=== PATIENT | female | born 1955 | race Caucasian/White ===

== ENCOUNTER 2020-05-31 08:59 | Outpatient (REF) | payer OTHER, SELFPAY ==
--- NOTE | 2020-06-01 12:37 | MHC.AU.P13 ---
Adult Audiological Evaluation Date of Visit: 05/31/20 Sliver Cutter Used: Not Applicable Reason for Appointment: Audiologic re-evaluation to determine possible change in hearing ability. History of hearing loss and difficulty understanding speech. Right hearing aid case is broken and needs to be repaired. Previous Hearing Test Results: 03/08/2019 [facility] Normal hearing at 250 and 500 Hz sloping to a moderate high frequency sensorineural hearing loss bilaterally. Medical History: Medical History: High Blood Pressure Medical History: Asthma and allergies Medication List: Claritin, Crestor, HCTZ, Omeprazole, Albuterol, Flovent Hearing Instrument History- Right Ear: Sample Grinder: InDMusic Model: [employer] V 50-M BTE Serial Number: [id number] Battery Size: 312 Repair Warranty: 01/21/2019 Loss and Damage Warranty: 01/21/2019 Dispensed By: [facility] Date of Fittin11/01/2015 Hearing Instrument History- Left Ear: Sample Grinder: [employer]ic Model: [employer] V 50-M BTE Serial Number: [id number] Battery Size: 312 Warranty: 01/31/2019 Loss and Damage Warranty: 01/31/2019 Dispensed By: [facility] Date of Fittin11/01/2015 Otoscopy: Right Ear: Unremarkable Left Ear: Unremarkable Tympanometry: Right Ear: Not performed at today's visit Left Ear: Not performed at today's visit Hearing Evaluation: Transducer(s) Used: Insert Earphones Bone Conduction Method: Conventional Audiometry Stimuli Used: Pure Tones Right Ear: Description of Hearing: Normal hearing at 250 and 500 Hz sloping to a moderate high frequency sensorineural hearing loss Left Ear: Description of Hearing: Borderline normal hearing at 250 and 500 Hz sloping to a moderate high frequency sensorineural hearing loss Speech Recognition Threshold (SRT): Method Used: Monitored Live Voice Stimuli Used: Spondee Words Right Ear: 25 dB HL Left Ear: 25 dB HL Word Discrimination: Method: Recorded Lists Word Lists Used: NU-6 Right Ear: 100% at 65 dB HL Left Ear: 100% at 65 dB HL QuickSIN: Unaided binaural Quick SIN Test: -1 dB SNR Loss This score falls within the normal range and suggests Brenda does not experience any more difficulty understanding speech with increasing levels of background noise than is expected in this control test environment. Comparison: Compared to the most recent evaluation: Hearing is stable. Recommendations: Audiological re-evaluation in one year. The right hearing aid was sent for repair. When the repair is received, will call to schedule appointment. Diagnosis: Primary Diagnosis: H90.3 Bilateral Sensorineural Hearing Loss Services Performed: Comprehensive Audiological Evaluation (CPT 13344) Signature: Provider: Isacc Flores, TERESO-A
== END 2020-05-31 09:00 | disposition home or self-care (01) ==
LOC: HO.SH 08:59
PROVIDERS: Visit Provider Internal Medicine
DX: H90.3 Sensorineural hearing loss, bilateral (principal)
CPT/HCPCS: 92557

== ENCOUNTER 2020-06-13 11:12 | Outpatient (REF) | payer SELFPAY ==
--- NOTE | 2020-06-14 16:35 | MHC.AU.P13 ---
Hearing Aid Evaluation- Binaural Date of Visit: 06/13/20 Description of Hearing: Mild sloping to moderate SNHL bilaterally Current Hearing Instrument Information: Phonak Bolero V50-M BTE (left one chewed by dog and beyond repair) Additional Information: Patient's current left hearing aid is beyond repair. She would like to purchase a new pair of hearing aids. Hearing Instrument Selection: Right Ear: Web Coordinator: Phonak Model: Properseo P50-312 Battery Size: 312 Color: Sand beige Pharmaceutical Process Engineer: Size 1 M Type of Dome: Small Closed Left Ear: Web Coordinator: Phonak Model: Audeo P50-312 Battery Size: 312 Color: Sand beige Pharmaceutical Process Engineer: Size 1 M Type of Dome: Small Closed Plan: Plan of Care for Hearing Instrument Fitting: Patient wishes to purchase hearing aids as prescribed Action Taken/Action Needed: Hearing Fitting to be scheduled when materials arrive Diagnosis Code(s): Primary Diagnosis: H90.3 Bilateral Sensorineural Hearing Loss Signature: Provider: Isacc Salinas, CCC-A
== END 2020-06-13 11:13 | disposition home or self-care (01) ==
LOC: HO.SH 11:12
PROVIDERS: Visit Provider Internal Medicine
DX: Z46.1 Encounter for fitting and adjustment of hearing aid (principal); H90.3 Sensorineural hearing loss, bilateral
CPT/HCPCS: V5014

== ENCOUNTER 2020-06-21 09:31 | Outpatient (REF) | payer SELFPAY | END 2020-06-21 09:32 | disposition home or self-care (01) | LOC: HO.HAP 09:31 | PROVIDERS: Visit Provider Internal Medicine | DX: Z46.1 Encounter for fitting and adjustment of hearing aid (principal) | CPT/HCPCS: 92591; V5261 ==

== ENCOUNTER 2020-07-12 11:24 | Outpatient (REF) | payer SELFPAY | END 2020-07-12 11:25 | disposition home or self-care (01) | LOC: HO.HAP 11:24 | PROVIDERS: Visit Provider Internal Medicine | DX: Z13.89 Encounter for screening for other disorder (principal) ==

== ENCOUNTER 2020-12-14 10:48 | Outpatient (REF) | payer SELFPAY | END 2020-12-14 10:49 | disposition home or self-care (01) | LOC: HO.HAP 10:48 | PROVIDERS: Visit Provider Internal Medicine | DX: Z13.89 Encounter for screening for other disorder (principal) ==

== ENCOUNTER 2021-04-04 14:05 | Outpatient (REF) | payer OTHER, SELFPAY ==
[2021-04-04 15:08] LABS: Influenza A PCR NEGATIVE (Negative); Influenza B PCR NEGATIVE (Negative); Resp Syncy Virus RNA Qual PCR NEGATIVE (Negative); SARS COV2 PCR INHOUSE POSITIVE (Negative)
== END 2021-04-04 14:06 | disposition home or self-care (01) ==
LOC: HO.LNP 14:05
PROVIDERS: Visit Provider Internal Medicine
DX: Z20.822 Contact with and (suspected) exposure to COVID-19 (principal)
CPT/HCPCS: 0241U

== ENCOUNTER 2021-12-05 11:09 | Outpatient (REF) | payer SELFPAY | END 2021-12-05 11:10 | disposition home or self-care (01) | LOC: HO.HAP 11:09 | PROVIDERS: Visit Provider Internal Medicine | DX: Z13.89 Encounter for screening for other disorder (principal) ==

== ENCOUNTER 2022-01-16 12:54 | Outpatient (REF) | payer MEDICARE, SELFPAY ==
[2022-01-16 13:40] LABS: MANUAL DIFF FLAG NO
[2022-01-16 13:41] LABS: Basophils Absolute Auto 0.1 X10*3/uL (0.0-0.2); Basophils Percent Auto 1.1 % (0-2); Eosinophils Absolute Auto 0.4 X10*3/uL (0.0-0.4); Eosinophils Percent Auto 8.1 % (0-4); Hematocrit 40.8 % (37.0-47.0); Hemoglobin 13.8 g/dl (12.0-16.0); Imm Gran Abs Auto 0.01 X10*3/uL (0.00-0.03); Imm Gran Pct Auto 0.2 % (0.0-0.4); Lymphocytes Absolute Auto 1.6 X10*3/uL (1.2-4.9); Lymphocytes Percent Auto 28.8 % (20-40); Mean Corpuscular HGB Conc 33.8 g/dl (31.0-35.0); Mean Corpuscular Hemoglobin 30.5 pg (27.0-33.0); Mean Corpuscular Volume 90.3 fL (80.0-98.0); Mean Platelet Volume 10.8 fL (9.4-12.3); Monocytes Absolute Auto 0.4 X10*3/uL (0.1-1.2); Monocytes Percent Auto 7.7 % (2-11); Neutrophils Percent Auto 54.1 % (45-73); Platelet Count 249 X10*3/uL (160-400); Red Blood Count 4.52 X10*6/uL (4.20-5.50); Red Cell Distribution Width 12.6 % (11.0-16.0); White Blood Count 5.5 X10*3/uL (4.8-10.8)
[2022-01-16 14:21] LABS: Alanine Aminotransferase 15 U/L (0-31); Albumin Level 4.3 g/dL (3.5-5.0); Alkaline Phosphatase 76 U/L (39-117); Anion Gap 14 (12-20); Aspartate Amino Transferase 15 U/L (5-31); Bilirubin Total 1.2 mg/dL (0.0-1.0); Blood Urea Nitrogen 7 mg/dL (9-16); Calcium 9.8 mg/dL (8.4-10.2); Carbon Dioxide 28 mmol/L (22-29); Chloride 103 mmol/L (96-108); Estimated Glomerular Filt Rate > 60; Glucose Random 104 mg/dL (60-115); Potassium 4.4 mmol/L (3.3-5.1); Sodium 141 mmol/L (135-145); Total Protein 6.9 g/dL (6.5-8.0)
[2022-01-16 14:41] LABS: Free T4 (Free Thyroxine) 0.95 ng/dL (0.71-1.85); Thyroid Stimulating Hormone 0.98 uIU/mL (0.32-4.0)
== END 2022-01-16 12:55 | disposition home or self-care (01) ==
LOC: HO.10HDL 12:54
PROVIDERS: Visit Provider Internal Medicine
DX: I10 Essential (primary) hypertension (principal); E30.9 Disorder of puberty, unspecified; J45.909 Unspecified asthma, uncomplicated; E78.00 Pure hypercholesterolemia, unspecified
CPT/HCPCS: 36415; 80053; 84439; 84443; 85025

== ENCOUNTER 2022-11-13 11:01 | Outpatient (REF) | payer SELFPAY | END 2022-11-13 11:02 | disposition home or self-care (01) | LOC: HO.HAP 11:01 | PROVIDERS: Visit Provider Internal Medicine | DX: Z13.89 Encounter for screening for other disorder (principal) ==

== ENCOUNTER 2023-01-01 11:09 | Outpatient (REF) | payer MEDICARE, SELFPAY ==
[2023-01-01 14:22] LABS: MANUAL DIFF FLAG NO
[2023-01-01 14:27] LABS: Basophils Absolute Auto 0.1 X10*3/uL (0.0-0.2); Eosinophils Absolute Auto 0.4 X10*3/uL (0.0-0.4); Eosinophils Percent Auto 6.1 % (0-4); Hematocrit 43.2 % (37.0-47.0); Hemoglobin 13.7 g/dl (12.0-16.0); Imm Gran Abs Auto 0.01 X10*3/uL (0.00-0.03); Imm Gran Pct Auto 0.2 % (0.0-0.4); Lymphocytes Percent Auto 32.7 % (20-40); Mean Corpuscular HGB Conc 31.7 g/dl (31.0-35.0); Mean Corpuscular Hemoglobin 29.3 pg (27.0-33.0); Mean Corpuscular Volume 92.3 fL (80.0-98.0); Mean Platelet Volume 11.2 fL (9.4-12.3); Monocytes Absolute Auto 0.5 X10*3/uL (0.1-1.2); Monocytes Percent Auto 8.8 % (2-11); Neutrophils Absolute Auto 3.1 x10*3/uL (2.0-8.3); Neutrophils Percent Auto 51.2 % (45-73); Platelet Count 278 X10*3/uL (160-400); Red Blood Count 4.68 X10*6/uL (4.20-5.50); Red Cell Distribution Width 12.6 % (11.0-16.0); White Blood Count 6.1 X10*3/uL (4.8-10.8)
[2023-01-01 15:02] LABS: Anion Gap 15 (12-20); Blood Urea Nitrogen 8 mg/dL (9-16); Calcium 9.7 mg/dL (8.4-10.2); Carbon Dioxide 26 mmol/L (22-29); Chloride 104 mmol/L (96-108); Cholesterol 158 mg/dL (<200); Estimated Glomerular Filt Rate > 60; Glucose Random 110 mg/dL (60-115); HDL Cholesterol 48 mg/dL (>40); LDL Cholesterol Calculated 83 mg/dL (<100); Potassium 4.4 mmol/L (3.3-5.1); Sodium 141 mmol/L (135-145); Triglycerides 135 mg/dL (<150)
[2023-01-01 15:18] LABS: Free T4 (Free Thyroxine) 0.86 ng/dL (0.71-1.85); Thyroid Stimulating Hormone 0.96 uIU/mL (0.32-4.0)
== END 2023-01-01 11:10 | disposition home or self-care (01) ==
LOC: HO.WFDLDS 11:09
PROVIDERS: Visit Provider Internal Medicine
DX: E78.00 Pure hypercholesterolemia, unspecified (principal); I10 Essential (primary) hypertension; E03.9 Hypothyroidism, unspecified
CPT/HCPCS: 36415; 80048; 80061; 84439; 84443; 85025

== ENCOUNTER 2023-08-13 12:38 | Outpatient (REF) | payer MEDICARE, SELFPAY ==
--- NOTE | 2023-08-13 13:34 | MHC.AU.HA3 ---
Hearing Instrument Follow-Up- Binaural Date of Visit: 08/13/23 Right Ear: Justino, Model, Color, Serial Number: Buck Hairston P50-312 SN [id number] Basket Grader Repair Warranty: 09/12/2023 Basket Grader Loss and Damage Warranty: 09/12/2023 [facility] Service Plan: 09/12/2023 Battery Size: 312 Wrap Knitting Machine Operator/Slim Tube: Size 1 M Earmold/Dome/CShell/SlimTip: Type of Wax Guard: Cerushield Dispensed By: [facility] Date of Fittin07/22/2020 Left Ear: Justino, Model, Color, Serial Number: Buck Hairston P50-312 SN [id number] Basket Grader Repair Warranty: 09/12/2023 Basket Grader Loss and Damage Warranty: 09/12/2023 [facility] Service Plan: 09/12/2023 Battery Size: 312 Wrap Knitting Machine Operator/Slim Tube: Size 1 M Earmold/Dome/CShell/SlimTip: Type of Wax Guard: Cerushield Dispensed By: [facility] Date of Fittin07/22/2020 Follow-Up Summary: Seen for evaluation. Cleaned and checked aids. Replaced tails, wax guards, domes. Listening check positive. Firmware updated. Recommendations: Recommendations: Hearing instrument follow-up or maintenance as needed. Diagnosis Code(s): Primary Diagnosis: H90.3 Bilateral Sensorineural Hearing Loss Signature: Provider: Jacques Baer, CCC-A
== END 2023-08-13 12:39 | disposition home or self-care (01) ==
LOC: HO.SH 12:38
PROVIDERS: Visit Provider Internal Medicine
DX: Z01.118 Encounter for examination of ears and hearing with other abnormal findings (principal); H90.3 Sensorineural hearing loss, bilateral
CPT/HCPCS: 92552; 92556

== ENCOUNTER 2024-06-15 15:38 | Outpatient (REF) | payer SELFPAY ==
--- NOTE | 2024-06-15 16:14 | MHC.AU.HA3 ---
Hearing Instrument Follow-Up- Binaural Date of Visit: 06/15/24 Right Ear: Justino, Model, Color, Serial Number: Buck Hairston P50-312 SN [id number] Performance Makeup Artist Repair Warranty: 09/12/2023 Performance Makeup Artist Loss and Damage Warranty: 09/12/2023 [facility] Service Plan: 09/12/2023 Battery Size: 312 Cotton Program Technician/Slim Tube: Size 1 M Earmold/Dome/CShell/SlimTip:sm open Type of Wax Guard: Cerushield Dispensed By: [facility] Date of Fittin07/22/2020 Left Ear: Justino, Model, Color, Serial Number: Buck Almanzaro P50-312 SN [id number] Performance Makeup Artist Repair Warranty: 09/12/2023 Performance Makeup Artist Loss and Damage Warranty: 09/12/2023 [facility] Service Plan: 09/12/2023 Battery Size: 312 Cotton Program Technician/Slim Tube: Size 1 M Earmold/Dome/CShell/SlimTip: sm open Type of Wax Guard: Cerushield Dispensed By: [facility] Date of Fittin07/22/2020 Follow-Up Summary: Seen for maintenance. Reports no concerns about hearing aids at this time. Cleaned aids, brushed debris from alex ports, replaced domes wax guards and tails. Listening check positive. Recommendations: Recommendations: Hearing instrument follow-up or maintenance as needed. Diagnosis Code(s): Primary Diagnosis: H90.3 Bilateral Sensorineural Hearing Loss Signature: Provider: Jacques Baer, CCC-A
--- OUTSIDE RECORDS SUMMARY | 2024-06-15 18:19 | XMS_ITS | Patient Health Record ---
Author Organization [facility] Address [address] [place] [address] Care Team Providers Care Paper Bag Inspector Name Role Phone Meliton Kline MD Primary Care Provider Unavaila ble Black, Rox Unavailable [phone] Allergies No Known Allergies Results Component Value Reference Range Notes X ray : Foot, left 3V Reviewed date:07/13/2023 02:25:37 PM Interpretation:See Examination above Performing Lab: Notes/Report: See Examination above Reason For Referral No Information Medications Medication SIG (Take, Route, Frequency, Duration) Notes Start Date End Date Status Ciclopirox Olamine 0.77 % 1 application Externally Once a day 05/29/2022 Not-Taking Flovent HFA 110 MCG/ACT INHALE 1 PUFF BY MOUTH TWICE A DAY (RINSE MOUTH AFTER USING) Inhalation for 90 Not-Taking hydroCHLOROthiazide 12.5 MG 1 capsule in the morning Orally Once a day for 30 day(s) Active Omeprazole 40 MG TAKE ONE CAPSULE BY MOUTH EVERY DAY Oral for 90 Active Ciclopirox 0.77 % APPLY 1 APPLICATION TWICE A DAY EXTERNALLY FOR 30 for 30 Not-Taking Wixela Inhub 100-50 MCG/ACT 1 puff Inhalation Twice a day Active Formula 7 The Solution Active Formula 7 The Solution 1 % 1 application Externally Once a day Active Ammonium Lactate 12 % 1 application Externally to affected areas of dry skin to feet except for between the toes Twice a day for 30 days Active Albuterol Sulfate HFA 108 (90 Base) MCG/ACT INHALE 2 PUFFS EVERY 4 HOURS DIRECTED Inhalation for 16 Active Claritin 10 MG 1 tablet Orally Once a day for 30 day(s) Active Vitamin D 3 times a week Active Crestor 5 MG 1 tablet Orally Once a day for 30 day(s) Active Immunizations Vaccine Route Administration Date Status Comme nts COVID-19 Moderna Vaccine Unknown 02/18/2021 Administered 1 dose 04/07/2020 2nd 05/05/20 Social History Tobacco Use: Social History Observation Description Date Details (start date - stop date) Never Smoker NA - NA Tobacco Use/Smoking Question Answer Notes Are you a: nonsmoker Additional Findings: Tobacco Non-User Current no n-smoker Alcohol Screen Question Answer Notes Did you have a drink containing alcohol in the p ast year? No Points 0 Interpretation Negative Tobacco use other than smoking: Question Answer Notes Are you an other tobacco user? No Problems Problem Type SNOMED Code ICD Code Onset Dates Problem Status W/U Status Risk Notes Problem Acquired hammer toe of right foot (283983310634030 5) Other hammer toe(s) (acquired), right foot (M20.41) Active confirmed Problem Acquired hammer toe of left foot (913038230584898 3) Other hammer toe(s) (acquired), left foot (M20.42) Active confirmed Problem Acquired hallux valgus (78876976) Hallux valgus (acquired), right foot (M20.11) Active confirmed Problem Contracture of joint (5752331) Flexion contracture (M24.50) Active confirmed Problem Acquired hallux valgus (65108522) Hallux valgus, left (M20.12) Active confirmed Vital Signs Blood pressure diastolic 80 mm Hg 05/16/2024 Height 9hn82dn in 05/16/2024 Blood pressure systolic 138 mm Hg 05/16/2024 Weight 234 lbs 05/16/2024 BMI 32.63 kg/m2 05/16/2024 Procedures Procedure Date Ordered Date Performed Result Body Sit e 80240-FAJUJER NAIL, 6 OR MORE 07/13/2023 N/A 07027-OMNIALZ NAIL, 6 OR MORE 10/29/2023 N/A 16755-[id number] NAIL, 6 OR MORE 02/08/2024 N/A 33436-VZRSHRW NAIL, 6 OR MORE 05/16/2024 N/A Encounters Encounter Location Date Provider Diagnosis [facility] [place] [address] [place] [address] 07/13/2023 Rox Black Tinea unguium B35.1 ; Pain in right toe(s) M79.674 ; Pain in left toe(s) M79.675 ; Pain in right foot M79.671 ; Metatarsalgia of left foot M77.42 ; Flexion contracture M24.50 ; Hallux valgus, left M20.12 and Pain in left foot M79.[address] [address] 10/29/2023 Rox Black Tinea unguium B35.1 ; Metatarsalgia of left foot M77.42 ; Pain in right toe(s) M79.674 ; Pain in left toe(s) M79.675 ; Pain in right foot M79.671 ; Flexion contracture M24.50 ; Hallux valgus, left M20.12 and Pain in left foot M79.[address] [address] 02/08/2024 Rox Black Tinea unguium B35.1 ; Metatarsalgia of left foot M77.42 ; Pain in right toe(s) M79.674 ; Pain in left toe(s) M79.675 ; Pain in right foot M79.671 ; Flexion contracture M24.50 ; Hallux valgus, left M20.12 and Pain in left foot M79.[address] [address] 05/16/2024 Rox Black Tinea unguium B35.1 ; Xerosis of skin L85.3 ; Pain in right toe(s) M79.674 and Pain in left toe(s) M79.[address] [address] 07/13/2023 Rox Black [address] [address] 10/29/2023 Rox Black [address] [address] 02/08/2024 Rox Black [facility] [address] [place] [address] 04/18/2024 Rox Shaji [facility] [address] [address] 05/16/2024 Rox Girard [facility] Encounter Date Diagnosis (ICD Code) Assessment Notes Treatment Notes Treatment Clinical Notes Section Notes 07/13/2023 Tinea unguium (ICD-10 - B35.1) 07/13/2023 Pain in right toe(s) (ICD-10 - M79.674) 10/29/2023 Tinea unguium (ICD-10 - B35.1) 02/08/2024 Tinea unguium (ICD-10 - B35.1) 10/29/2023 Metatarsalgia of left foot (ICD-10 - M77.42) Response to treatment - Unchanged 02/08/2024 Metatarsalgia of left foot (ICD-10 - M77.42) Response to treatment - Improvement 05/16/2024 Tinea unguium (ICD-10 - B35.1) 05/16/2024 Xerosis of skin (ICD-10 - L85.3) 05/16/2024 Pain in right toe(s) (ICD-10 - M79.674) 02/08/2024 Pain in right toe(s) (ICD-10 - M79.674) 10/29/2023 Pain in right toe(s) (ICD-10 - M79.674) 07/13/2023 Pain in left toe(s) (ICD-10 - M79.675) 07/13/2023 Pain in right foot (ICD-10 - M79.671) 10/29/2023 Pain in left toe(s) (ICD-10 - M79.675) 02/08/2024 Pain in left toe(s) (ICD-10 - M79.675) 05/16/2024 Pain in left toe(s) (ICD-10 - M79.675) 02/08/2024 Pain in right foot (ICD-10 - M79.671) 10/29/2023 Pain in right foot (ICD-10 - M79.671) 07/13/2023 Metatarsalgia of left foot (ICD-10 - M77.42) 07/13/2023 Flexion contracture (ICD-10 - M24.50) 02/08/2024 Flexion contracture (ICD-10 - M24.50) 10/29/2023 Flexion contracture (ICD-10 - M24.50) 10/29/2023 Hallux valgus, left (ICD-10 - M20.12) 02/08/2024 Hallux valgus, left (ICD-10 - M20.12) 07/13/2023 Hallux valgus, left (ICD-10 - M20.12) 10/29/2023 Pain in left foot (ICD-10 - M79.672) 02/08/2024 Pain in left foot (ICD-10 - M79.672) 07/13/2023 Pain in left foot (ICD-10 - M79.672) Plan Of Treatment Pending Test Test Name Order Date 04583-GZIOSPO NAIL, 6 OR MORE 03/05/2020 18779-LRIXQKK NAIL, 6 OR MORE 09/06/2020 17795-EWXINOZ NAIL, 6 OR MORE 12/06/2020 08521-WJHPPXZ NAIL, 6 OR MORE 03/25/2021 48739-RMFSZJD NAIL, 6 OR MORE 07/08/2021 88787-QVIGMZM NAIL, 6 OR MORE 11/21/2021 40668-GYLEZLW NAIL, 6 OR MORE 02/24/2022 19088-BKWUVEL NAIL, 6 OR MORE 09/04/2022 15948-NJIWYPF NAIL, 6 OR MORE 02/19/2023 03923-HVIVUWF NAIL, 6 OR MORE 07/13/2023 13333-RSBCNNQ NAIL, 6 OR MORE 10/29/2023 32063-PFPDOVV NAIL, 6 OR MORE 02/08/2024 56835-QDTXMVJ NAIL, 6 OR MORE 05/16/2024 Next Appt Details Provider Name:Rox A Shaji , 08/25/2024 01:30:00 PM, [address] [facility], [place], [address], Insurance Providers Payer Name Payer Address Payer Phone Subscriber Number Group Number Insured Name Patient Relationship to Insured Coverage Start Date Coverage End Date [employer] 65 Medicare Preferred [address] [place] [address] [id number] Brenda Munguia Self - patient is the insured Medical (General) History Medical History History ICD Code asthma High blood pressure Measles Chicken pox toenail fungus Surgical History Surgery Date(Month/Year) section 09/1985 section 08/1988 hysterectomy 05/1992
--- OUTSIDE RECORDS SUMMARY | 2024-06-15 18:19 | XMS_ITS ---
Author Organization [facility] Address [address] [place] [address] Care Team Providers Care Menhaden Fishing Crew Member Name Role Phone Meliton Kline MD Primary Care Provider UnavailRox Swift Unavailable [phone] REASON FOR VISIT BUY Formula 7 Encounters Encounter Location Date Provider Diagnosis [facility] [address] [place] [address] 04/18/2024 Rox Girard Plan Of Treatment Next Appt Details Provider Name:Rox A Shaji , 08/25/2024 01:30:00 PM, [address] [place], [address], Progress Notes * ANNABrenda PORTERDOB: [birth year] (68 yo F)Acc No.[id number]:04/18/2024 Patient:?LAINECOTYBrenda :1955???Age:68 Y???Sex:Female Address:[place] [address] * true * Date:? Generated for Iftikhari vance/Ashvin/eTransmitting on:?06/15/2024 06:19 PM EDT
--- OUTSIDE RECORDS SUMMARY | 2024-06-15 18:19 | XMS_ITS ---
Author Organization [facility] Address [address] [place] [address] Care Team Providers Care Engineering Faculty Member Name Role Phone Meliton Kline MD Primary Care Provider Rox Sargent [phone] REASON FOR VISIT BUY Dancers Pads Encounters Encounter Location Date Provider Diagnosis [address] [address] 05/16/2024 Rox Girard Plan Of Treatment Next Appt Details Provider Name:Rox Girard , 08/25/2024 01:30:00 PM, [address] [place], [address], Progress Notes * Brenda WILLISDOB: [birth year] (68 yo F)Acc No.[id number]:05/16/2024 Patient:?ANNAGERMAN Brenda :1955???Age:68 Y???Sex:Female Address:[place] [address] * true * Date:? Generated for Iftikhari vance/Ashvin/eTransmitting on:?06/15/2024 06:19 PM EDT
--- OUTSIDE RECORDS SUMMARY | 2024-06-15 18:20 | XMS_ITS ---
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 Name Role Phone Meliton Kline MD Primary Care Provider Unavaila ble Black, Rox Unavailable [phone] Allergies No Known Allergies REASON FOR VISIT Painful nail(s) aggrevated by shoes causing difficulty standing/walking, Skin problem(s) Medications Medication SIG (Take, Route, Frequency, Duration) Notes Start Date End Date Status Ciclopirox Olamine 0.77 % 1 application Externally Once a day 05/29/2022 Not-Taking Flovent HFA 110 MCG/ACT INHALE 1 PUFF BY MOUTH TWICE A DAY (RINSE MOUTH AFTER USING) Inhalation for 90 Not-Taking Omeprazole 40 MG TAKE ONE CAPSULE BY MOUTH EVERY DAY Oral for 90 Active Ciclopirox 0.77 % APPLY 1 APPLICATION TWICE A DAY EXTERNALLY FOR 30 for 30 Not-Taking Ammonium Lactate 12 % 1 application Externally to affected areas of dry skin to feet except for between the toes Twice a day for 30 days Active hydroCHLOROthiazide 12.5 MG 1 capsule in the morning Orally Once a day for 30 day(s) Active Albuterol Sulfate HFA 108 (90 Base) MCG/ACT INHALE 2 PUFFS EVERY 4 HOURS DIRECTED Inhalation for 16 Active Claritin 10 MG 1 tablet Orally Once a day for 30 day(s) Active Vitamin D 3 times a week Active Crestor 5 MG 1 tablet Orally Once a day for 30 day(s) Active Wixela Inhub 100-50 MCG/ACT 1 puff Inhalation Twice a day Active Formula 7 The Solution Active Formula 7 The Solution 1 % 1 application Externally Once a day Active Social History Tobacco Use: Social History Observation Description Date Details (start date - stop date) Never Smoker NA - NA Tobacco Use/Smoking Question Answer Notes Are you a: nonsmoker Additional Findings: Tobacco Non-User Current no n-smoker Tobacco use other than smoking: Question Answer Notes Are you an other tobacco user? No Vital Signs Height [id number] in 05/16/2024 Weight 234 lbs 05/16/2024 BMI 32.63 kg/m2 05/16/2024 Blood pressure systolic 138 mm Hg 05/16/19 25 Blood pressure diastolic 80 mm Hg 025 Procedures Procedure Date Ordered Date Performed Result Body Sit e 48738-YWMBIOH NAIL, 6 OR MORE 05/16/2024 N/A Encounters Encounter Location Date Provider Diagnosis [facility] [address] [address] 05/16/2024 Rox Girard Tinea unguium B35.1 ; Xerosis of skin L85.3 ; Pain in right toe(s) M79.674 and Pain in left toe(s) M79.675 Assessments Encounter Date Diagnosis (ICD Code) Assessment Notes Treatment Notes Treatment Clinical Notes Section Notes 05/16/2024 Tinea unguium (ICD-10 - B35.1) 05/16/2024 Xerosis of skin (ICD-10 - L85.3) 05/16/2024 Pain in right toe(s) (ICD-10 - M79.674) 05/16/2024 Pain in left toe(s) (ICD-10 - M79.675) Plan Of Treatment Medication Medication Name Sig Start Date Stop Date Notes Ammonium Lactate 12 % 1 application Exte rnally to affected areas of dry skin to feet except for between the toes Twice a day for 30 days Pending Test Test Name Order Date [id number] NAIL, 6 OR MORE 05/16/2024 Next Appt Details Follow Up: prn, Reason: Provider Name:Rox Girard , 08/25/2024 01:30:00 PM, [address] [place] [address], [id number], Procedure Notes * Category Sub-Category Detail Notes Debride Nail 6-10 Nail debridement Due to the cl inical pathology outlined in the exam findings, performance of this nail treatment is medically necessary as its management by an unskilled/untrained nonprofessional would put this patients foot and overall health at risk. Therefore, debridement to affected nail(s), as described in exam ( TA, T1, T4, T5, T6, T9, ), was performed exclusively by the physician of record to reduce/remove overall nail length, girth, thickness, subungual debris, and necrotic tissue, by manual and/or electrical means through the use of a nail nipper and/or dremel-type sugar grinder, to a more viable healthy nail plate or bed tissue 6-10 nails in total. Silver nitrate was used for any petechial bleeding as necessary. Definitive antifungal treatment options, both pharmaceutical and surgical, have been reviewed and discussed with the patient. The patient solely prefers the use of intermittent/as needed professional debridement services for their nail condition and understands the need for additional periodic treatments to maintain effectiveness in symptomatic relief - 57410 Patient chooses to cont, topical AF treatment Progress Notes * Brenda WILLISDOB: [birth year] (68 yo F)Acc No.[id number]:05/16/2024 Progress Note Patient:?Brenda WILLIS Provider:?Rox Girard DPM :1955???Age:68 Y???Sex:Female D ate:05/16/2024 Address:[address] [place], [place] [id number] Pcp:Meliton Kline MD Subjective: * Chief Complaints: * ???Painful nail(s) aggrevate d by shoes causing difficulty standing/walkingSkin problem(s) * HPI: ???Painful Nails:?Pt States Last PCP Visit:?Date:?01/14/2024 ?Treatments:?Coclopirox topical gel and , Formula 7 , relates incomplete sporatic adherence to recom tx.?Skin problems:?Nature:?dryness , scaling.?Location:?B/L .?Duration:?several days.?Course:?worse.? * ROS:?General/Constitutional:?Nausea?denies.?Vomiting?denies.?Hunger Thirst?denies.?Loss appetite?denies.?Chills?denies.?Fatigue?denies.?Fever?denies.?Night Sweats?denies.?Unexplained weight loss?denies.?Unexplained weight gain?denies.?HEENTM:?Dentures?denies.?Dizziness?denies.?Glasses/contacts?admits.?Retinopathy?de nies.?Blurred/double vision?denies.?TMJ?denies.?Discharge/drainage?denies.?Implants?denies.?Sore throat?denies.?Dental implants?denies.?Hard of hearing ?denies.?Difficulty chewing/swallowing/speaking?denies.?Nose bleeds?denies.?Sore mouth?denies.?Respiratory:?On Oxygen?denies.?Pneumonia/pleurisy?denies.?Bronchitis?denies.?Emphysema?denies.?C oughing?denies.?Cough blood?denies.?Shortness of breath?denies.?Wheezing?denies.?Cardiovascular:?Pacemaker?denies.?MVP?denies.?WPW?denies.?CHF?denies.?Heart attack?denies.?Septal defect?denies.?Rapid beat?denies.?Chest pain ?denies.?Atrial Fib.?denies.?Murmur/Palpitations?denies.?Gastrointestinal:?Hemorrhoids?denies.?Stomach/Abdominal pain?denies.?Dark blood stool?denies.?Irritable bowel ?denies.?Constipation?denies.?Diarrhea?denies.?Hematology:?Swelling?denies.?Clots?denies.?Varicose Veins?denies.?Bruising?denies.?Bleeding problem?denies.?Genitourinary:?Blood urine?denies.?Frequent/Painfu/urination/bladder control?denies.?Kidney stones?denies.?Infection (UTI)?denies.?Nephropathy?denies.?sex trans dis (STD)?denies.?Prostate?denies.?Musculoskeletal:?Hammertoes?denies.?Bunions?denies.?Back Pain?denies.?Muscle Cramps/ Resting?denies.?Muscle cramps / walking?denies.?Generalized aches and pains?admits.?Weakness?denies.?Integ.:?Perez?denies.?Scars?denies.?Corns/calluses?admits.?Ingrown nails?denies.?Painful nails?,admits.?Open Sores?denies.?Rashes?denies.?Neurologic:?Difficulty sleeping?denies.?Brain disorder?denies.?Numbness?denies.?Balance trouble?denies.?Confusion?denies.?Fainting/blackouts?denies.?Tingling?denies.?Tr emors?denies.? * Medical History:? * Surgical History:? s ection 09/1985cesarean section 08/1988hysterectomy 05/1992 * Hospitalization/Major Diagno stic Procedure:?Denies Past Hospitalization * Family History:?Mother: dece ased, diagnosed with Unspecified cerebral artery occlusion with cerebral infarction.?Father: , kidney/liver disease,.?Siblings: , Brother- Lung Cancer, diagnosed with Other malignant neoplasm of unspecified site, Diabetic - NIDDM, Unspecified essential hypertension.?Spouse: esophageal cancer , diagnosed with Other specified conditions influencing health status.? * Social History:?Tobacco Use:?Tobacco Use/Smoking?Are you a:?nonsmoker ?Additional Findings: Tobacco Non-User?Current non-smoker ?Tobacco use other than smoking?Are you an other tobacco user??No ???Miscellaneous:?Caffeine: yes, frequency:, 1-2 cups per day. ?Children: yes. ?Exercise: yes, walking. ?Marital status: . ?Occupation: [employer] * Medications:?TakingFormula 7 The Solution 1 % Solution 1 application Externally Once a day Wixela Inhub 100-50 MCG/ACT Aerosol Powder Breath Activated 1 puff Inhalation Twice a day Formula 7 The Solution Vitamin D , Notes to Pharmacist: 3 times a weekCrestor 5 MG Tablet 1 tablet Orally Once a day Albuterol Sulfate HFA 108 (90 Base) MCG/ACT Aerosol Solution INHALE 2 PUFFS EVERY 4 HOURS DIRECTED Inhalation Claritin 10 MG Tablet 1 tablet Orally Once a day hydroCHLOROthiazide 12.5 MG Capsule 1 capsule in the morning Orally Once a day Omeprazole 40 MG Capsule Delayed Release TAKE ONE CAPSULE BY MOUTH EVERY DAY Oral Taking Formula 7 The Solution 1 % Solution 1 application Externally Once a day Taking Wixela Inhub 100-50 MCG/ACT Aerosol Powder Breath Activated 1 puff Inhalation Twice a day Taking Formula 7 The Solution Taking Vitamin D , Notes to Pharmacist: 3 times a weekTaking Crestor 5 MG Tablet 1 tablet Orally Once a day Taking Albuterol Sulfate HFA 108 (90 Base) MCG/ACT Aerosol Solution INHALE 2 PUFFS EVERY 4 HOURS DIRECTED Inhalation Taking Claritin 10 MG Tablet 1 tablet Orally Once a day Taking hydroCHLOROthiazide 12.5 MG Capsule 1 capsule in the morning Orally Once a day Taking Omeprazole 40 MG Capsule Delayed Release TAKE ONE CAPSULE BY MOUTH EVERY DAY Oral Not-Taking/PRNCiclopirox Olamine 0.77 % Cream 1 application Externally Once a day Flovent HFA 110 MCG/ACT Aerosol INHALE 1 PUFF BY MOUTH TWICE A DAY (RINSE MOUTH AFTER USING) Inhalation Ciclopirox 0.77 % Gel APPLY 1 APPLICATION TWICE A DAY EXTERNALLY FOR 30 Medication List reviewed and reconciled with the patientNot-Taking/PRN Ciclopirox Olamine 0.77 % Cream 1 application Externally Once a day Not-Taking/PRN Flovent HFA 110 MCG/ACT Aerosol INHALE 1 PUFF BY MOUTH TWICE A DAY (RINSE MOUTH AFTER USING) Inhalation Not-Taking/PRN Ciclopirox 0.77 % Gel APPLY 1 APPLICATION TWICE A DAY EXTERNALLY FOR 30 Medication List reviewed and reconciled with the patient * Allergies:?N.K.D.A.yes[Ravin duncan Verified] Objective: * Vitals:?Ht: [id number], Wt:234, BMI:32.63, Shoe size: 10, BP:138/80mm Hg, Ht-cm: 180.34 cm, Wt-k.14 kg. * Examination: ???General Examination: ?GENERAL APPEARANCE:?Reveals a pleasant, alert, well nourished, well- developed, well hydrated individual, who demonstrates proper attention to hygiene/body habitus, and is in no acute distress, Pt serves as own historian for office visit today.?ORIENTED:?person, place, and time.?Nails: ?NAILS are:?elongated,overgrown,dystrophic,greater than 3mm thick,discolored and friable with crumbly malodorous subungual debris, with pain on palpation, TA, T1, T4, T5, T6, T9,.?Orthopedic: ?BUNION:? Medially prominent 1st MPJ,LEFT.?DIGITAL DEFORMITIES:?Digital contracture, PIPJ, 2-5 B/L, incompl-reducible with WB, or to push-up test, no over, nor underlapping.?MPJ PATHOLOGY:?Atrophied anterior fat pad , Plantarflexed MT/MPJ , Pain, swelling, and inflammation to plantar MPJ(s) , 1st , LEFT, No MPJ pain with ROM , Approximately 70 percent LESS.?Vascular: ?DP PULSES (B):?2/4, B/L.?PT PULSES (B):?2/4, B/L.?Dermatologic: ?SKIN FINDINGS:?Skin shows sign(s) of, dryness, scaling, in a stocking fashion, no fissure(s) present, B/L.? Assessment: * Assessment: 1.?Tinea unguium - B35.1???2 .?Xerosis of skin - L85.3 (Primary)???Specify :Acute problem, Uncomplicated (3),Rx Management (4)???3.?Pain in right toe(s) - M79.674???4.?Pain in left toe(s) - M79.675??? Plan: * Treatment: 2.?Tinea unguium?Procedure: [id number] NAIL, 6 OR MORE * Procedures:?Debride Nail 6-10:?Nail debridement?Due to the clinical pathology outlined in the exam findings, performance of this nail treatment is medically necessary as its management by an unskilled/untrained nonprofessional would put this patients foot and overall health at risk. Therefore, debridement to affected nail(s), as described in exam ( TA, T1, T4, T5, T6, T9, ), was performed exclusively by the physician of record to reduce/remove overall nail length, girth, thickness, subungual debris, and necrotic tissue, by manual and/or electrical means through the use of a nail nipper and/or dremel-type sugar grinder, to a more viable healthy nail plate or bed tissue 6-10 nails in total. Silver nitrate was used for any petechial bleeding as necessary. Definitive antifungal treatment options, both pharmaceutical and surgical, have been reviewed and discussed with the patient. The patient solely prefers the use of intermittent/as needed professional debridement services for their nail condition and understands the need for additional periodic treatments to maintain effectiveness in symptomatic relief - 23111.?Patient chooses ?to cont, topical AF treatment.? * Procedure Codes:?85750 DEBRI DE NAIL, 6 OR MORE * Preventive Medicine:? ??Counseling:?Discussion:?-13: Office or other outpatient visit for the evaluation and management of an established patient, which required a medically appropriate history and/or examination and LOW level of DECISION MAKING for: 1 STABLE ACUTE UNCOMPLICATED PROBLEM, 2 OR MORE MINOR PROBLEMS, OR 1 STABLE CHRONIC PROBLEM, THAT POSE(S) A LOW RISK FOR MORBIDITY/MORTALITY. The visit on the day of the encounter encompassed interpreting the data and educating the patient as to the nature of their condition, treatment options available according to their individual PMH, meds, allergies, and overall health/living conditions, as well as any potential risks or complications that may occur from a failure to adhere to, and participate in, the recommended course of therapy. The discussion included a complete verbal, and/or written explanation of the examination results, any x-rays taken, the proposed diagnosis, and outline of the treatment plan. A schedule for future care needs was also explained. The patient verbalized an understanding of the instructions at this time and agreed to be an active participant in their treatment. If the patient should think of any questions or concerns after the visit, I have encouraged the patient to call the office.?Xerosis:?The patient was counseled on the diagnosis, potential etiologies, and treatment options for their skin condition. We discussed the risks and benefits of each option from performing no treatment, to utilizing OTC topical skin creams/ointments, to utilizing prescription topical creams/ointments, to utilizing customized compounded topical medications and use of nocturnal occlusion with any/all previously detailed therapies. We discussed the advantages and disadvantages of each possible treatment and importance for adherence to all the recommended therapies for optimum success and avoid potential complications such as open sore/infection/possible hospitalization. We discussed the potential effectiveness of each topical preparation as well as each ones possible side effects and/or patient medication interactions. Patient questions re: use, dosage, successful outcomes, and application consistency were reviewed and the patient verbalized that all answers were clearly understood. The patient has decided to apply Rx skin creams to their feet save the interspaces while paying special attention to the heels. Such was sent to their pharmacy at the time of visit.? ??Screening/Special Tests:?Fall Risk?Screening:?No falls in the past year ?FALLS: Screening for Future Fall Risk?Have you had any falls with injury in the past year??No * Follow Up:?prn * Images: * Sign off status: Completed true * Provider:?JEANINE StoddardM Date:?2024 Generated for Charles woodard/Ashvin/Luther on:?06/15/2024 06:19 PM EDT History and Physical Notes * HPI (History of Present Illness) Category Sub-Category Detail Notes Category Not es Painful Nails Treatments: Coclopirox topic al gel and , Formula 7 , relates incomplete sporatic adherence to recom tx Pt States Last PCP Visit: Date:: 01/14/2024 Skin problems Nature: dryness , scaling Location: B/L Duration: several days Course: worse Examination Category Sub-Category Detail Notes Category Not es Dermatologic SKIN FINDINGS: Skin shows sign( s) of, dryness, scaling, in a stocking fashion, no fissure(s) present, B/L Orthopedic BUNION: Medially prominent 1st MPJ, LEFT DIGITAL DEFORMITIES: Digital contracture , PIPJ, 2-5 B/L, incompl-reducible with WB, or to push-up test, no over, nor underlapping MPJ PATHOLOGY: Atrophied anterior f at pad , Plantarflexed MT/MPJ , Pain, swelling, and inflammation to plantar MPJ(s) , 1st , LEFT, No MPJ pain with ROM , Approximately 70 percent LESS General Examination GENERAL APPEARANCE: Reveals a pleasant, alert, well nourished, well-developed, well hydrated individual, who demonstrates proper attention to hygiene/body habitus, and is in no acute distress, Pt serves as own historian for office visit today ORIENTED: person, place, and t william Vascular DP PULSES (B): 2/4, B/L PT PULSES (B): 2/4, B/L Nails NAILS are: elongated,overgr own,dystrophic,greater than 3mm thick,discolored and friable with crumbly malodorous subungual debris, with pain on palpation, TA, T1, T4, T5, T6, T9,
== END 2024-06-15 15:39 | disposition home or self-care (01) ==
LOC: HO.HAP 15:38
PROVIDERS: Visit Provider Internal Medicine
DX: Z46.1 Encounter for fitting and adjustment of hearing aid (principal); H90.3 Sensorineural hearing loss, bilateral
CPT/HCPCS: 92593

== ENCOUNTER 2024-06-24 10:26 | Outpatient (AMB) | payer MEDICARE, SELFPAY ==
--- NOTE | 2024-06-24 10:32 | MHC.PC.OV ---
Vital Signs 06/24/24 10:50 Height 5 ft 11 in Weight 233 lb BMI 32.5 BP 124/72 Respiration 16 Pulse 80 Pulse Source Pulse Oximeter Temp 97.8 F Temp Source Temporal Artery Scan Pulse Oximetry (%) 97 Oxygen Delivery Method Room Air Intake Visit Reasons: Routine Manager Event Required: No Accompanied by: Self / Same As Patient Allergies No Known Allergies Allergy (Verified 06/24/24 10:53) Tobacco use date assessed: 06/24/24 Fall risk assessment: No Falls in past year Last assessed Fall Risk: 06/24/24 Dental Screening Dental Screen Date: 06/24/24 Did you have a dental visit in the last 12 months?: No Did you have a dental problem in the last 6 months where you did not have access to dental care?: No HPI HPI Comments History of Present Illness Details The patient is a 68 year old female with a past medical hsitory of htn, hld, asthma, GERD, frequent UTI presenting for follow up Last seen Jan 2024 for annual CV: on hctz mwv. BP 124/72. Denies chest pain, shortness of breath GERD: Stable on PPI Frequent UTI. Has abx at home Cologuard 06/18/2022 Mammo says UTD ROS CONSTITUTIONAL: Denies weight loss, fever and chills. HEENT: Denies changes in vision and hearing. RESPIRATORY: Denies SOB and cough. CV: Denies palpitations and CP GI: Denies abdominal pain, nausea, vomiting and diarrhea. : Denies dysuria and urinary frequency. MSK: Denies new myalgia and joint pain. SKIN: Denies rash and pruritus. NEUROLOGICAL: Denies headache PSYCHIATRIC: Denies recent changes in mood. PHYSICAL EXAM: GENERAL: Alert and oriented x 3. NAD EYES: EOMI. Anicteric. HENT: Moist mucous membranes. No scleral icterus. No cervical lymphadenopathy. LUNGS: Clear to auscultation bilaterally. CARDIOVASCULAR: Regular rate and rhythm. No murmur. No JVD. ABDOMEN: Soft, non-tender +bs EXTREMITIES: No edema. Non-tender. SKIN: No rashes or lesions. Warm. NEUROLOGIC: No focal neurological deficits. CN II-XII grossly intact PSYCHIATRIC: Cooperative. Appropriate mood and affect [facility] Family History Mother Ovarian cancer Father Liver failure AA (alcohol abuse) Social History Housing: House Alcohol intake: current Alcohol intake frequency: holidays/special occasions only Patient Tobacco Use Status: Never used Tobacco service: No Current occupational status: retired Cognitive needs: No Hearing needs: Yes (b/l hearing aids) Vision needs: Yes (rx glasses) Questionnaire PHQ-9 Over the last 2 weeks, how often have you been bothered by any of the following problems? 1. Little interest or pleasure in doing things: not at all 2. Feeling down, depressed, or hopeless: not at all 3. Trouble falling or staying asleep, or sleeping too much: not at all 4. Feeling tired or having little energy: not at all 5. Poor appetite or overeating: not at all 6. Feeling bad about yourself - or that you are a failure or have let yourself or your family down: not at all 7. Trouble concentrating on things, such as reading the newspaper or watching television: not at all 8. Moving or speaking so slowly that other people could have noticed. Or the opposite - being so fidgety or restless that you have been moving around a lot more than usual: not at all 9. Thoughts that you would be better off or of hurting yourself in some way: not at all Total score: 0 Depression Screening Interpretation: Negative Depression Screening Done: Yes 42655 - PHQ-9 Billing: Yes Source: Developed by Drs. Ishmael Fernández, Sofia Le, Vin Howard and colleagues, with an educational jessika from [employer]. Thrive Questionnaire Date Thrive assessed: 06/24/24 I am a: Patient What is your living situation today?: I have a steady place to live Within the past 12 months, did the food you bought not last and you didn't have the money to get more?: Never true Within the past 12 months, did you worry whether your food would run out before you got money to buy more?: Never true Do you have trouble paying for medicines?: No Do you have trouble getting transportation to medical appointments?: No Do you have trouble paying your heating and electricity bill?: No Do you have trouble taking care of your child, family member or friend?: No Do you have trouble with day-to-day activities such as bathing, preparing meals, shopping, managing finances, etc.?: No Are you currently unemployed and looking for a job?: No Are you interested in more education?: No Please select the resources that you would like help with: None THRIVE Score: 0 AUDIT C Alcohol Use Questionnaire (AUDIT-C) 1. How often do you have a drink containing alcohol?: Monthly or less 2. How many drinks containing alcohol do you have on a typical day when you are drinking?: 1 or 2 3. How often do you have six or more drinks on one occasion?: Never Total Score: 1 KRISTAN-7 AMB Questionnaire KRISTAN-7 Date KRISTAN - 7 assessed: 06/24/24 Feeling nervous, anxious, or on edge: 0 = Not at all Not being able to stop or control worryin = Not at all Worrying too much about different things: 1 = Several days Trouble relaxin = Not at all Being so restless that it is hard to sit still: 0 = Not at all Becoming easily annoyed or irritable: 0 = Not at all Feeling afraid as if something awful might happen: 0 = Not at all Total KRISTAN-7 score (0-4 normal; 5-9 mild; 10-14 moderate; 15-21 severe): 1 Source: Developed by Drs. Ishmael Fernández, Sofia Le, Vin Howard and colleagues, with an educational jessika from [employer]. Physical exam (Primary Care) Vital Signs: Last Vital Signs Temp 97.8 F 06/24/24 10:50 Pulse 80 06/24/24 10:50 Resp 16 06/24/24 10:50 BP 124/72 06/24/24 10:50 Pulse Ox 97 06/24/24 10:50 Oxygen Delivery Method Room Air 06/24/24 10:50 BMI result Body Mass Index 32.5 Tobacco/Smoking Status: Tobacco use Status Tobacco use date assessed 06/24/24 06/24/24 10:57 Patient Tobacco Use Status Never used Tobacco 06/24/24 10:58 PHQ-9: PHQ-9 Score PHQ-9: Total score 0 06/24/24 11:15 Depression Screening Interpretation: Negative Thrive Assessment: Date of Thrive Assessment Date Thrive assessed 06/24/24 06/24/24 11:00 Coding Level of Care Code New Pt Level 4 (12432) Complex EM visit Add On G2211 Diagnoses Primary hypertension I10 Hypertension type: primary hypertension Hyperlipidemia, unspecified hyperlipidemia type E78.5 Hyperlipidemia type: unspecified Additional Codes PHQ-9 - 59437 - PHQ-9 Billing: Yes ([id number]) Assessment & Plan Assessment & Plan (1) Hypertension: Code(s): I10 - Essential (primary) hypertension Category: Medical Qualifiers: Hypertension type: primary hypertension Qualified Code(s): I10 - Essential (primary) hypertension (2) Hyperlipidemia: Code(s): E78.5 - Hyperlipidemia, unspecified Category: Medical Qualifiers: Hyperlipidemia type: unspecified Qualified Code(s): E78.5 - Hyperlipidemia, unspecified Plan 68 y/o to establish care. past medical, surgical, social, family history reviewed. Medications reconciled BP controlled. Labs ordered Orders: Orders Comprehensive Met. Panel 06/24/24 E78.5 - Hyperlipidemia, unspecified, I10 - Essential (primary) hypertension, Z13.0 - Encounter for screening for diseases of the blood and blood-forming organs and certain disorders involving the immune mechanism, Z13.228 - Encounter for screening for other metabolic disorders Complete Blood Count Auto Diff 06/24/24 E78.5 - Hyperlipidemia, unspecified, I10 - Essential (primary) hypertension, Z13.0 - Encounter for screening for diseases of the blood and blood-forming organs and certain disorders involving the immune mechanism, Z13.228 - Encounter for screening for other metabolic disorders Lipid Panel 06/24/24 E78.5 - Hyperlipidemia, unspecified, I10 - Essential (primary) hypertension, Z13.0 - Encounter for screening for diseases of the blood and blood-forming organs and certain disorders involving the immune mechanism, Z13.228 - Encounter for screening for other metabolic disorders Hemoglobin A1c 06/24/24 E78.5 - Hyperlipidemia, unspecified, I10 - Essential (primary) hypertension, Z13.0 - Encounter for screening for diseases of the blood and blood-forming organs and certain disorders involving the immune mechanism, Z13.228 - Encounter for screening for other metabolic disorders TSH reflex Free T4 06/24/24 E04.1 - Nontoxic single thyroid nodule, R79.89 - Other specified abnormal findings of blood chemistry, Z13.228 - Encounter for screening for other metabolic disorders Vitamin D 25-OH (D2 and D3) 06/24/24 E04.1 - Nontoxic single thyroid nodule, R79.89 - Other specified abnormal findings of blood chemistry, Z13.228 - Encounter for screening for other metabolic disorders Referrals Cologuard Test Z12.11 - Encounter for screening for malignant neoplasm of colon, Z12.12 - Encounter for screening for malignant neoplasm of rectum Medications: New alprazolam (Xanax) 0.5 mg PO BID PRN 20 tabs 0RF anxiety F40.243 - Fear of flying nitrofurantoin monohyd/m-cryst 100 mg (Macrobid) must administer with a meal/food 100 mg PO Q12H 14 caps 2RF 7 days
[2024-06-24 10:50] VITALS: BP 124/72; PULSE 80; RESP 16; TEMP 36.6; O2SAT 97; BMI 32.5
--- OUTSIDE RECORDS SUMMARY | 2024-06-24 12:28 | XMS_ITS | Patient Health Record ---
Author Organization [facility] Address [address] [facility] [place] [address] Care Team Providers Care Press Leader Name Role Phone Meliton Kline MD Primary Care Provider Unavaila ble Black, Rox Unavailable [phone] Allergies No Known Allergies Results Component Value [...] Problem Acquired hammer toe of right foot (046580963285237 5) Other hammer toe(s) (acquired), right foot (M20.41) Active confirmed Problem Acquired hammer toe of left foot (169953083423264 3) Other hammer toe(s) (acquired), left foot (M20.42) Active confirmed Problem Acquired hallux valgus (05263984) Hallux valgus (acquired), right foot (M20.11) Active confirmed Problem Contracture of joint (9285436) Flexion contracture (M24.50) Active confirmed Problem Acquired hallux valgus (16599915) Hallux valgus, left (M20.12) Active confirmed Vital Signs Blood pressure diastolic 80 mm Hg 05/16/2024 Height 7qz65lb in 05/16/2024 Blood pressure systolic 138 mm Hg 05/16/2024 Weight 234 lbs 05/16/2024 BMI 32.63 kg/m2 05/16/2024 Procedures Procedure Date Ordered Date Performed Result Body Sit e 44066-AYVMDSR NAIL, 6 OR MORE 07/13/2023 N/A 41282-NMFWJHZ NAIL, 6 OR MORE 10/29/2023 N/A 45966-PQJHDBB NAIL, 6 OR MORE 02/08/2024 N/A 57514-XISYOQX NAIL, 6 OR MORE 05/16/2024 N/A Encounters Encounter Location Date Provider Diagnosis [facility] [place] [address] [place] [address] 07/13/2023 Rox Black Tinea unguium B35.1 ; Pain in right toe(s) M79.674 ; Pain in left toe(s) M79.675 ; Pain in right foot M79.671 ; Metatarsalgia of left foot M77.42 ; Flexion contracture M24.50 ; Hallux valgus, left M20.12 and Pain in left foot M79.[address] [address] 10/29/2023 Rox Black Tinea unguium B35.1 ; Metatarsalgia of left foot M77.42 ; Pain in right toe(s) M79.674 ; Pain in left toe(s) M79.675 ; Pain in right foot M79.671 ; Flexion contracture M24.50 ; Hallux valgus, left M20.12 and Pain in left foot M79.[address] [address] 02/08/2024 Rox Black Tinea unguium B35.1 ; Metatarsalgia of left foot M77.42 ; Pain in right toe(s) M79.674 ; Pain in left toe(s) M79.675 ; Pain in right foot M79.671 ; Flexion contracture M24.50 ; Hallux valgus, left M20.12 and Pain in left foot M79.[address] [address] 05/16/2024 Rox Black Tinea unguium B35.1 ; Xerosis of skin L85.3 ; Pain in right toe(s) M79.674 and Pain in left toe(s) M79.[address] [address] 07/13/2023 Rox Black [address] [address] 10/29/2023 Rox Black [address] [address] 02/08/2024 Rox Black [facility] [address] [place] [address] 04/18/2024 Rox Shaji [facility] [address] [address] 05/16/2024 Rox Girard [facility] Encounter Date Diagnosis (ICD Code) Assessment Notes [...] Treatment Pending Test Test Name Order Date 65621-VFLSPXV NAIL, 6 OR MORE 03/05/2020 76692-IVBGBFI NAIL, 6 OR MORE 09/06/2020 57062-LWCAPHB NAIL, 6 OR MORE 12/06/2020 71673-PAIBOFF NAIL, 6 OR MORE 03/25/2021 90543-YZFQRFV NAIL, 6 OR MORE 07/08/2021 44784-QQIAUSG NAIL, 6 OR MORE 11/21/2021 02052-TTJYQQP NAIL, 6 OR MORE 02/24/2022 87689-MABYHJV NAIL, 6 OR MORE 09/04/2022 26952-RBGUPKT NAIL, 6 OR MORE 02/19/2023 97821-DTHFFCM NAIL, 6 OR MORE 07/13/2023 62667-TJIRTGW NAIL, 6 OR MORE 10/29/2023 30890-ZJVOZAY NAIL, 6 OR MORE 02/08/2024 41767-ULSJJUL NAIL, 6 OR MORE 05/16/2024 Next Appt Details Provider Name:Rox A Shaji , 08/25/2024 01:30:00 PM, [address] [facility], [place], [address], Insurance Providers Payer Name Payer Address Payer Phone Subscriber Number Group Number Insured Name Patient Relationship to Insured Coverage Start Date Coverage End Date BlueCare 65 Medicare Preferred [address] [place] [address] [id number] Brenda Munguia Self - patient is the insured Medical (General) History Medical History History ICD Code asthma High blood pressure Measles Chicken pox toenail fungus Surgical History Surgery Date(Month/Year) section 09/1985 section 08/1988 hysterectomy 05/1992
--- OUTSIDE RECORDS SUMMARY | 2024-06-24 12:28 | XMS_ITS ---
Author Organization [facility] Address [address] [facility] [place] [address] Care Team Providers Care Wirer Helper Name Role Phone Meliton Kline MD Primary Care Provider Unavaila ble Black, Rox Unavailable [phone] Allergies No Known Allergies REASON FOR VISIT [...] an other tobacco user? No Vital Signs Blood pressure systolic 138 mm Hg 05/16/19 25 Blood pressure diastolic 80 mm Hg 025 Height 7tf29vr in 05/16/2024 Weight 234 lbs 05/16/2024 BMI 32.63 kg/m2 05/16/2024 Procedures Procedure Date Ordered Date Performed Result Body Sit e 19198-MIDWVFN NAIL, 6 OR MORE 05/16/2024 N/A Encounters Encounter Location Date Provider Diagnosis [facility] [address] [address] 05/16/2024 Rox Girard Tinea unguium B35.1 ; [...] days Pending Test Test Name Order Date 53679-AFZXVZP NAIL, 6 OR MORE 05/16/2024 Next Appt Details Follow Up: prn, Reason: Provider Name:Rox Girard , 08/25/2024 01:30:00 PM, [address] [place] [address], [address], Procedure Notes * Category Sub-Category Detail Notes [...] use of a nail nipper and/or dremel-type razor grinder, to a more viable healthy nail [...] to maintain effectiveness in symptomatic relief - 60407 Patient chooses to cont, topical AF treatment Progress Notes * Brenda WILLISDOB: [birth year] (68 yo F)Acc No.[id number]:05/16/2024 Progress Note Patient:?Brenda WILLIS Provider:?Rox Girard DPM :1955???Age:68 Y???Sex:Female D ate:05/16/2024 Address:[address] [place], [place] [id number] Pcp:Meliton Kline MD Subjective: * Chief Complaints: [...] ?Exercise: yes, walking. ?Marital status: . ?Occupation: [employer] * Medications:?TakingFormula 7 The Solution [...] * Allergies:?N.K.D.A.yes[Ravin duncan Verified] Objective: * Vitals:?Ht: 0yy97eq, Wt:234, BMI:32.63, Shoe size: 10, BP:138/80mm Hg, [...] - M79.675??? Plan: * Treatment: 2.?Tinea unguium?Procedure: 61390-LNCGXMD NAIL, 6 OR MORE * Procedures:?Debride Nail [...] use of a nail nipper and/or dremel-type razor grinder, to a more viable healthy nail [...] to maintain effectiveness in symptomatic relief - 45325.?Patient chooses ?to cont, topical AF treatment.? * Procedure Codes:?61629 DEBRI DE NAIL, 6 OR MORE * [...] Provider:?JEANINE StoddardM Date:?2024 Generated for Charles woodard/Ashvin/Luther on:?06/24/2024 12:28 PM EDT History and Physical Notes * [...]
--- OUTSIDE RECORDS SUMMARY | 2024-06-24 12:28 | XMS_ITS ---
Author Organization [facility] Address [address] [place] [address] Care Team Providers Care Pole Maker Name Role Phone Meliton Kline MD Primary Care Provider UnavailRox Swift Unavailable [phone] REASON FOR VISIT BUY Formula 7 Encounters Encounter Location Date Provider Diagnosis [address] [address] 04/18/2024 Rox Girard Plan Of Treatment Next Appt Details Provider Name:Rox A Shaji , 08/25/2024 01:30:00 PM, [address] [place], [address], Progress Notes * ANNABrenda PORTERDOB: [birth year] (68 yo F)Acc No.[id number]:04/18/2024 Patient:?AYANNAJENNYBrenda :1955???Age:68 Y???Sex:Female Address:[place] [address] * true * Date:? Generated for Iftikhari vance/Ashvin/eTransmitting on:?06/24/2024 12:28 PM EDT
--- OUTSIDE RECORDS SUMMARY | 2024-06-24 12:28 | XMS_ITS ---
Author Organization [facility] Address [address] [place] [address] Care Team Providers Care Peer Tutor Name Role Phone Meliton Kline MD Primary Care Provider Rox Sargent [phone] REASON FOR VISIT BUY Dancers Pads Encounters Encounter Location Date Provider Diagnosis [address] [address] 05/16/2024 Rox Girard Plan Of Treatment Next Appt Details Provider Name:Rox Girard , 08/25/2024 01:30:00 PM, [address] [place], [address], Progress Notes * Brenda WILLISDOB: [birth year] (68 yo F)Acc No.[id number]:05/16/2024 Patient:?ANNAGERMAN Brenda :1955???Age:68 Y???Sex:Female Address:[place] [address] * true * Date:? Generated for Iftikhari vance/Ashvin/eTransmitting on:?06/24/2024 12:28 PM EDT
== END 2024-06-24 11:16 | disposition home or self-care (01) ==
LOC: HO.HMCHD 10:26
PROVIDERS: PCP Internal Medicine; Visit Provider Internal Medicine
DX: I10 Essential (primary) hypertension (principal); E78.5 Hyperlipidemia, unspecified

== ENCOUNTER → 2024-06-24 10:26 | Outpatient (BNVA) | payer MEDICARE, SELFPAY | PROVIDERS: PCP Internal Medicine; Visit Provider Internal Medicine | DX: I10 Essential (primary) hypertension (principal); E78.5 Hyperlipidemia, unspecified; K21.9 Gastro-esophageal reflux disease without esophagitis; J45.909 Unspecified asthma, uncomplicated; Z79.899 Other long term (current) drug therapy | CPT/HCPCS: 96127; 99202 ==

== ENCOUNTER 2024-08-18 11:36 | Outpatient (REF) | payer MEDICARE, SELFPAY ==
--- OUTSIDE RECORDS SUMMARY | 2024-08-18 12:43 | XMS_ITS | Patient Health Record ---
Author Organization [facility] Address [address] [facility] [place] [address] Care Team Providers Care Residential Concierge Name Role Phone Melitno Kline MD Primary Care Provider Unavaila ble Black, Rox Unavailable [phone] Allergies No Known Allergies Reason For Referral No Information Medications Medication [...] Problem Acquired hammer toe of right foot (465029723563644 5) Other hammer toe(s) (acquired), right foot (M20.41) Active confirmed Problem Acquired hammer toe of left foot (105132662848335 3) Other hammer toe(s) (acquired), left foot (M20.42) Active confirmed Problem Acquired hallux valgus (63502897) Hallux valgus (acquired), right foot (M20.11) Active confirmed Problem Contracture of joint (8790059) Flexion contracture (M24.50) Active confirmed Problem Acquired hallux valgus (65700292) Hallux valgus, left (M20.12) Active confirmed Vital Signs Blood pressure diastolic 80 mm Hg 05/16/2024 Height 5iy83tq in 05/16/2024 Blood pressure systolic 138 mm Hg 05/16/2024 Weight 234 lbs 05/16/2024 BMI 32.63 kg/m2 05/16/2024 Procedures Procedure Date Ordered Date Performed Result Body Sit e 09509-ZPTTWMW NAIL, 6 OR MORE 10/29/2023 N/A 04570-JEFLZAV NAIL, 6 OR MORE 02/08/2024 N/A 41128-YCHSJGW NAIL, 6 OR MORE 05/16/2024 N/A Encounters Encounter Location Date Provider Diagnosis [facility] [place] [address] [place] [address] 10/29/2023 Rox Black Tinea unguium B35.1 ; Metatarsalgia of left foot M77.42 ; Pain in right toe(s) M79.674 ; Pain in left toe(s) M79.675 ; Pain in right foot M79.671 ; Flexion contracture M24.50 ; Hallux valgus, left M20.12 and Pain in left foot M79.[address] [address] 02/08/2024 Rox Black Tinea unguium B35.1 ; Metatarsalgia of left foot M77.42 ; Pain in right toe(s) M79.674 ; Pain in left toe(s) M79.675 ; Pain in right foot M79.671 ; Flexion contracture M24.50 ; Hallux valgus, left M20.12 and Pain in left foot M79.[address] [address] 05/16/2024 Roxantwon Girard Tinea unguium B35.1 ; Xerosis of skin L85.3 ; Pain in right toe(s) M79.674 and Pain in left toe(s) M79.[address] [address] 10/29/2023 Rox Girard [address] [address] 02/08/2024 [facility] [address] 04/18/2024 Rox Girard [address] [address] 05/16/2024 Rox Girard Assessments Encounter Date Diagnosis (ICD Code) Assessment Notes Treatment Notes Treatment Clinical Notes Section Notes 10/29/2023 Tinea unguium (ICD-10 - B35.1) 02/08/2024 [...] toe(s) (ICD-10 - M79.674) 10/29/2023 Pain in left toe(s) (ICD-10 - M79.675) 02/08/2024 Pain in left toe(s) (ICD-10 - M79.675) 05/16/2024 Pain in left toe(s) (ICD-10 - M79.675) 02/08/2024 Pain in right foot (ICD-10 - M79.671) 10/29/2023 Pain in right foot (ICD-10 - M79.671) 02/08/2024 Flexion contracture (ICD-10 - M24.50) 10/29/2023 Flexion contracture (ICD-10 - M24.50) 10/29/2023 Hallux valgus, left (ICD-10 - M20.12) 02/08/2024 Hallux valgus, left (ICD-10 - M20.12) 10/29/2023 Pain in left foot (ICD-10 - M79.672) 02/08/2024 Pain in left foot (ICD-10 - M79.672) Plan Of Treatment Pending Test Test Name Order Date 32654-PFWXYSW NAIL, 6 OR MORE 03/05/2020 60141-RVLPIOK NAIL, 6 OR MORE 09/06/2020 00710-HQXPQIN NAIL, 6 OR MORE 12/06/2020 13023-WBINJHT NAIL, 6 OR MORE 03/25/2021 60433-TFTDKSX NAIL, 6 OR MORE 07/08/2021 18569-CVKBPKP NAIL, 6 OR MORE 11/21/2021 47455-ARKUANK NAIL, 6 OR MORE 02/24/2022 04562-GDMGEHF NAIL, 6 OR MORE 09/04/2022 91901-LVBWXPV NAIL, 6 OR MORE 02/19/2023 84459-BCPXFIN NAIL, 6 OR MORE 07/13/2023 88675-VHTNLSA NAIL, 6 OR MORE 10/29/2023 57008-YXDOGWB NAIL, 6 OR MORE 02/08/2024 40586-IQXEUSL NAIL, 6 OR MORE 05/16/2024 Next Appt Details Provider Name:Rox Girard , 08/25/2024 01:30:00 PM, [address] [place], [address], Insurance Providers Payer Name Payer Address Payer Phone Subscriber Number Group Number Insured Name Patient Relationship to Insured Coverage Start Date Coverage End Date BlueCare 65 Medicare Preferred [address] [place] [address] [phone] [id number] Armando monae Brenda Self - patient is the insured Medical (General) History Medical History History ICD Code asthma High blood pressure Measles Chicken pox toenail fungus Surgical History Surgery Date(Month/Year) section 09/1985 section 08/1988 hysterectomy 05/1992
--- OUTSIDE RECORDS SUMMARY | 2024-08-18 12:43 | XMS_ITS ---
Author Organization [facility] Address [address] [place] [address] Care Team Providers Care Head Grower Name Role Phone Meliton Kline MD Primary Care Provider Rox Sargent [phone] REASON FOR VISIT BUY Dancers Pads Encounters Encounter Location Date Provider Diagnosis [address] [address] 05/16/2024 Rox Girard Plan Of Treatment Next Appt Details Provider Name:Rox Girard , 08/25/2024 01:30:00 PM, [address] [place], [address], Progress Notes * Brenda WILLISDOB: [birth year] (68 yo F)Acc No.[id number]:05/16/2024 Patient:?ANNAGERMAN Brenda :1955???Age:68 Y???Sex:Female Address:[place] [address] * true * Date:? Generated for Iftikhari vance/Ashvin/eTransmitting on:?08/18/2024 12:42 PM EDT
--- OUTSIDE RECORDS SUMMARY | 2024-08-18 12:43 | XMS_ITS ---
[facility] Address [address] [facility] [place] [address] Care Team Providers Care Cell Installer Name Role Phone Meliton Kline MD Primary Care Provider Unavaila ble Black, Rox Unavailable [phone] Allergies No Known Allergies REASON FOR VISIT [...] other tobacco user? No Vital Signs Height 3wn80pv in 05/16/2024 Weight 234 lbs 05/16/2024 BMI 32.63 kg/m2 05/16/2024 Blood pressure systolic 138 mm Hg 05/16/19 25 Blood pressure diastolic 80 mm Hg 025 Procedures Procedure Date Ordered Date Performed Result Body Sit e 30425-CECZRWC NAIL, 6 OR MORE 05/16/2024 N/A Encounters Encounter Location Date Provider Diagnosis [facility] [address] [address] 05/16/2024 Rox Girard Tinea unguium B35.1 ; [...] days Pending Test Test Name Order Date [id number]-UPCGPFP NAIL, 6 OR MORE 05/16/2024 Next Appt Details Follow Up: prn, Reason: Provider Name:Rox Girard , 08/25/2024 01:30:00 PM, [address] [place] [address], [phone], Procedure Notes * Category Sub-Category Detail Notes [...] use of a nail nipper and/or dremel-type instrument lens grinder apprentice, to a more viable healthy nail plate [...] to maintain effectiveness in symptomatic relief - 08943 Patient chooses to cont, topical AF treatment Progress Notes * Brenda WILLISDOB: [birth year] (68 yo F)Acc No.[id number]:05/16/2024 Progress Note Patient:?Brenda WILLIS Provider:?Rox Girard DPM :1955???Age:68 Y???Sex:Female D ate:05/16/2024 Address:[address] [place], [place] [id number] Pcp:Meliton Kline MD Subjective: * Chief Complaints: [...] ?Exercise: yes, walking. ?Marital status: . ?Occupation: [employer] * Medications:?TakingFormula 7 The Solution [...] * Allergies:?N.K.D.A.yes[Ravin duncan Verified] Objective: * Vitals:?Ht: 1nh22gj, Wt:234, BMI:32.63, Shoe size: 10, BP:138/80mm Hg, [...] - M79.675??? Plan: * Treatment: 2.?Tinea unguium?Procedure: 94021-MSPFPJP NAIL, 6 OR MORE * Procedures:?Debride Nail [...] use of a nail nipper and/or dremel-type instrument lens grinder apprentice, to a more viable healthy nail plate [...] to maintain effectiveness in symptomatic relief - 19038.?Patient chooses ?to cont, topical AF treatment.? * Procedure Codes:?98536 DEBRI DE NAIL, 6 OR MORE * [...] Provider:?JEANINE StoddardM Date:?2024 Generated for Charles woodard/Ashvin/Luther on:?08/18/2024 12:43 PM EDT History and Physical Notes * [...]
--- OUTSIDE RECORDS SUMMARY | 2024-08-18 12:43 | XMS_ITS ---
Author Organization [facility] Address [address] [place] [address] Care Team Providers Care Furniture Stainer Name Role Phone Meliton Kline MD Primary Care Provider UnavailRox Swift Unavailable [phone] REASON FOR VISIT BUY Formula 7 Encounters Encounter Location Date Provider Diagnosis [facility] [address] [place] [address] 04/18/2024 Rox Girard Plan Of Treatment Next Appt Details Provider Name:Rox Bangura Shaji , 08/25/2024 01:30:00 PM, [address] [place], [address], Progress Notes * ANNABrenda PORTERDOB: [birth year] (68 yo F)Acc No.[id number]:04/18/2024 Patient:?AYANNAJENNYBrenda :1955???Age:68 Y???Sex:Female Address:[place] [address] * true * Date:? Generated for Iftikhari vance/Faoswald/eTransmitting on:?08/18/2024 12:42 PM EDT
[2024-08-18 14:20] LABS: MANUAL DIFF FLAG NO
[2024-08-18 14:27] LABS: Basophils Absolute Auto 0.1 X10*3/uL (0.0-0.2); Eosinophils Absolute Auto 0.4 X10*3/uL (0.0-0.4); Hematocrit 42.5 % (37.0-47.0); Hemoglobin 13.6 g/dl (12.0-16.0); Imm Gran Abs Auto 0.02 X10*3/uL (0.00-0.03); Imm Gran Pct Auto 0.3 % (0.0-0.4); Lymphocytes Absolute Auto 1.9 X10*3/uL (1.2-4.9); Lymphocytes Percent Auto 31.1 % (20-40); Mean Corpuscular Volume 90.6 fL (80.0-98.0); Mean Platelet Volume 11.5 fL (9.4-12.3); Monocytes Absolute Auto 0.5 X10*3/uL (0.1-1.2); Monocytes Percent Auto 7.6 % (2-11); Neutrophils Absolute Auto 3.3 x10*3/uL (2.0-8.3); Platelet Count 253 X10*3/uL (160-400); Red Blood Count 4.69 X10*6/uL (4.20-5.50); Red Cell Distribution Width 13.1 % (11.0-16.0)
[2024-08-18 14:39] LABS: Estimated Average Glucose 117 mg/dL; Hemoglobin A1C 137.4989 umol/L; Hemoglobin A1c % 5.7 % (<6.0); Total Hemoglobin (HGBA1C) 3574.3959 umol/L
[2024-08-18 15:02] LABS: Alanine Aminotransferase 24 U/L (0-31); Albumin Level 4.1 g/dL (3.5-5.0); Anion Gap 12 (12-20); Aspartate Amino Transferase 22 U/L (5-31); Bilirubin Total 1.1 mg/dL (0.0-1.0); Blood Urea Nitrogen 10 mg/dL (9-16); Calcium 9.3 mg/dL (8.4-10.2); Carbon Dioxide 28 mmol/L (22-29); Chloride 107 mmol/L (96-108); Cholesterol 196 mg/dL (<200); Estimated Glomerular Filt Rate > 60; Glucose Random 100 mg/dL (60-115); HDL Cholesterol 45 mg/dL (>40); LDL Cholesterol Calculated 115 mg/dL (<100); Sodium 143 mmol/L (135-145); Total Protein 6.9 g/dL (6.5-8.0); Triglycerides 180 mg/dL (<150)
[2024-08-18 15:53] LABS: Alkaline Phosphatase 75 U/L (39-117)
[2024-08-22 13:09] LABS: Vitamin D 25-OH, D2 <4 ng/mL; Vitamin D 25-OH, D3 43 ng/mL; Vitamin D 25-OH, Total 43 ng/mL (30-100)
== END 2024-08-18 11:37 | disposition home or self-care (01) ==
LOC: HO.WFDLDS 11:36
PROVIDERS: Visit Provider Internal Medicine
DX: I10 Essential (primary) hypertension (principal); E78.5 Hyperlipidemia, unspecified; Z13.0 Encounter for screening for diseases of the blood and blood-forming organs and certain disorders involving the immune mechanism; Z13.228 Encounter for screening for other metabolic disorders; E04.1 Nontoxic single thyroid nodule; R79.89 Other specified abnormal findings of blood chemistry
CPT/HCPCS: 36415; 80053; 80061; 82306; 83036; 84443; 85025

== ENCOUNTER 2024-08-26 08:43 | Outpatient (AMB) | payer MEDICARE, SELFPAY ==
[2024-08-26 08:47] VITALS: BP 126/80; PULSE 91; TEMP 36.5; O2SAT 96; BMI 33.5
--- NOTE | 2024-08-26 08:47 | A.OFFPC_ITS ---
Vital Signs 08/26/24 08:47 Height 5 ft 11 in Weight 240 lb BMI 33.5 BP 126/80 Blood Pressure Location Lt brachial Position Sitting Pulse 91 Pulse Source Pulse Oximeter Temp 97.7 F Temp Source Axillary Pulse Oximetry (%) 96 Oxygen Delivery Method Room Air Intake Visit Reasons: Anxiety Md Do Resident Urgent Care Required: No Accompanied by: Self / Same As Patient Allergies No Known Allergies Allergy (Verified 08/26/24 08:48) Tobacco use date assessed: 08/26/24 Fall risk assessment: No Falls in past year Last assessed Fall Risk: 08/26/24 Dental Screening Dental Screen Date: 08/26/24 Did you have a dental visit in the last 12 months?: Yes Did you have a dental problem in the last 6 months where you did not have access to dental care?: No HPI HPI Comments History of Present Illness Details The patient is a 68 year old female with a past medical hsitory of htn, hld, asthma, GERD, frequent UTI presenting for follow up Presenting for follow up anxiety. Increased baseline anxiety. Was previously only taking xanax for flying but has had to use 3 or 4 over the past couple weeks. 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 Her brother is on celexa CV: on hctz mwv. BP 124/72. Denies chest pain, shortness of breath GERD: Stable on PPI Frequent UTI. Has abx at home Cologuard 06/18/2022 Apryl says UTD ROS CONSTITUTIONAL: Denies weight loss, fever and chills. HEENT: Denies changes in vision and hearing. RESPIRATORY: Denies SOB and cough. CV: Denies palpitations and CP GI: Denies abdominal pain, nausea, vomiting and diarrhea. : Denies dysuria and urinary frequency. MSK: Denies new myalgia and joint pain. SKIN: Denies rash and pruritus. NEUROLOGICAL: Denies headache PSYCHIATRIC: Denies recent changes in mood. PHYSICAL EXAM: GENERAL: Alert and oriented x 3. NAD EYES: EOMI. Anicteric. HENT: Moist mucous membranes. No scleral icterus. No cervical lymphadenopathy. LUNGS: Clear to auscultation bilaterally. CARDIOVASCULAR: Regular rate and rhythm. No murmur. No JVD. ABDOMEN: Soft, non-tender +bs EXTREMITIES: No edema. Non-tender. SKIN: No rashes or lesions. Warm. NEUROLOGIC: No focal neurological deficits. CN II-XII grossly intact PSYCHIATRIC: Cooperative. Appropriate mood and affect PFSH Family History (Updated 08/26/24 @ 08:56 by Iesha Vu MA) Mother Ovarian cancer Father Liver failure AA (alcohol abuse) Social History Housing: House Alcohol intake: current Alcohol intake frequency: holidays/special occasions only Patient Tobacco Use Status: Never used Tobacco service: No Current occupational status: retired Cognitive needs: No Hearing needs: Yes (b/l hearing aids) Vision needs: Yes (rx glasses) Questionnaire PHQ-9 Over the last 2 weeks, how often have you been bothered by any of the following problems? 1. Little interest or pleasure in doing things: not at all 2. Feeling down, depressed, or hopeless: not at all 3. Trouble falling or staying asleep, or sleeping too much: not at all 4. Feeling tired or having little energy: not at all 5. Poor appetite or overeating: not at all 6. Feeling bad about yourself - or that you are a failure or have let yourself or your family down: not at all 7. Trouble concentrating on things, such as reading the newspaper or watching television: not at all 8. Moving or speaking so slowly that other people could have noticed. Or the opposite - being so fidgety or restless that you have been moving around a lot more than usual: not at all 9. Thoughts that you would be better off or of hurting yourself in some way: not at all Total score: 0 Source: Developed by Drs. Ishmael Fernández, Sofia Le, Vin Howard and colleagues, with an educational jessika from [employer]. Thrive Questionnaire Date Thrive assessed: 08/26/24 I am a: Patient Within the past 12 months, did the food you bought not last and you didn't have the money to get more?: Never true Within the past 12 months, did you worry whether your food would run out before you got money to buy more?: Never true Do you have trouble paying for medicines?: No Do you have trouble getting transportation to medical appointments?: No Do you have trouble paying your heating and electricity bill?: No Do you have trouble taking care of your child, family member or friend?: No Do you have trouble with day-to-day activities such as bathing, preparing meals, shopping, managing finances, etc.?: No Are you currently unemployed and looking for a job?: No Are you interested in more education?: No THRIVE Score: 0 AUDIT C Alcohol Use Questionnaire (AUDIT-C) 1. How often do you have a drink containing alcohol?: Never 3. How often do you have six or more drinks on one occasion?: Never Total Score: 0 KRISTAN-7 AMB Questionnaire KRISTAN-7 Date KRISTAN - 7 assessed: 08/26/24 Feeling nervous, anxious, or on edge: 0 = Not at all Not being able to stop or control worryin = Not at all Worrying too much about different things: 0 = Not at all Trouble relaxin = Not at all Being so restless that it is hard to sit still: 0 = Not at all Becoming easily annoyed or irritable: 0 = Not at all Feeling afraid as if something awful might happen: 0 = Not at all Total KRISTAN-7 score (0-4 normal; 5-9 mild; 10-14 moderate; 15-21 severe): 0 Source: Developed by Drs. Ishmael Fernández, Sofia Le, Vin Howard and colleagues, with an educational jessika from [employer]. Physical exam (Primary Care) Vital Signs: Last Vital Signs Temp 97.7 F 08/26/24 08:47 Pulse 91 08/26/24 08:47 BP 126/80 08/26/24 08:47 Pulse Ox 96 08/26/24 08:47 Oxygen Delivery Method Room Air 08/26/24 08:47 BMI result Body Mass Index 33.5 Tobacco/Smoking Status: Tobacco use Status Tobacco use date assessed 08/26/24 08/26/24 08:56 Patient Tobacco Use Status Never used Tobacco 08/26/24 08:49 PHQ-9: PHQ-9 Score PHQ-9: Total score 0 08/26/24 08:52 Thrive Assessment: Date of Thrive Assessment Date Thrive assessed 08/26/24 08/26/24 08:49 Coding Level of Care Code Est Pt Level 4 (98740) Diagnoses Anxiety, generalized F41.1 Assessment & Plan Assessment & Plan (1) Anxiety, generalized: Code(s): F41.1 - Generalized anxiety disorder Category: Medical Plan Start prozac. Potential side effects discussed Continue as needed xanax-infrequent Patient given names of psychiatrists and therapist to call for inquiry Medications: New fluoxetine (Prozac) 10 mg PO DAILY 90 caps 3RF
--- OUTSIDE RECORDS SUMMARY | 2024-08-26 09:00 | XMS_ITS ---
Author Organization [facility] Address [address] [place] [address] Care Team Providers Care Real Estate Investor Name Role Phone JakobElina arroyo Primary Care Provider Rox Phillip [phone] REASON FOR VISIT BUY Dancers Pads Encounters Encounter Location Date Provider Diagnosis [facility] [address] [place] [address] 05/16/2024 Rox Girard Plan Of Treatment Next Appt Details Provider Name:Rox Girard , 12/12/2024 01:00:00 PM, [address] [place], [address], Progress Notes * Brenda WILLISDOB: [birth year] (68 yo F)Acc No.[id number]:05/16/2024 Patient:?ANNABrenda PORTER :1955???Age:68 Y???Sex:Female Address:[place] [address] * true * Date:? Generated for Iftikhari vance/Ashvin/eTransmitting on:?08/26/2024 08:59 AM EDT
== END 2024-08-26 09:18 | disposition home or self-care (01) ==
LOC: HO.HMCHD 08:44
PROVIDERS: PCP Internal Medicine; Visit Provider Internal Medicine
DX: F41.1 Generalized anxiety disorder (principal)

== ENCOUNTER → 2024-08-26 08:43 | Outpatient (BNVA) | payer MEDICARE, SELFPAY | PROVIDERS: PCP Internal Medicine; Visit Provider Internal Medicine | DX: F41.1 Generalized anxiety disorder (principal); I10 Essential (primary) hypertension; E78.5 Hyperlipidemia, unspecified; J45.909 Unspecified asthma, uncomplicated; K21.9 Gastro-esophageal reflux disease without esophagitis; Z87.440 Personal history of urinary (tract) infections; Z79.899 Other long term (current) drug therapy | CPT/HCPCS: 96127; 99212 ==

== ENCOUNTER 2024-12-29 10:08 | Outpatient (AMB) | payer MEDICARE, SELFPAY ==
--- NOTE | 2024-12-29 10:10 | A.OFFPC_ITS ---
Vital Signs 12/29/24 10:17 Height 5 ft 11 in Weight 241 lb BMI 33.6 BP 138/84 Blood Pressure Location Rt brachial Position Sitting Respiration 18 Pulse 75 Pulse Source Pulse Oximeter Temp 97.8 F Temp Source Temporal Artery Scan Pulse Oximetry (%) 96 Oxygen Delivery Method Room Air Intake Visit Reasons: 6 Month F/U Tour Escort Required: No Accompanied by: Self / Same As Patient Allergies No Known Allergies Allergy (Verified 12/29/24 10:10) Medication List - Last Reconciled 12/29/24 by Juan Luis Nava MD albuterol sulfate 90 mcg/actuation 2 puffs inhalation Q6H PRN ammonium lactate 12% appl topical estradiol 0.01%(0.1mg/gram) 1 g vaginal 2XW fluticasone propion-salmeterol 100-50 mcg/dose (Wixela Inhub) 1 inh inhalation BID ketoconazole 2% appl topical BID loratadine (Claritin) 10 mg PO DAILY omeprazole 20 mg PO DAILY rosuvastatin (Crestor) 5 mg PO DAILY Tobacco use date assessed: 08/26/24 Fall risk assessment: No Falls in past year Last assessed Fall Risk: 12/29/24 Dental Screening Dental Screen Date: 12/29/24 Did you have a dental visit in the last 12 months?: No Did you have a dental problem in the last 6 months where you did not have access to dental care?: No Was dental information given to patient?: Patient has dentist HPI HPI Comments History of Present Illness Details The patient is a 69-year-old female presenting with a request for a bilateral hearing test and management of anxiety disorder, hypercholesterolemia, and hypertension. The patient reports anxiety initially addressed through a prescription of Prozac (fluoxetine), taken daily in September and October. In November, she reduced the dosage to every other day due to undesirable side effects, including excessive sweating and sexual dysfunction. These side effects, alongside personal factors such as witnessing a traumatic event, led to her decision to discontinue Prozac. Currently, she occasionally experiences feelings of imbalance and anxiety, exacerbated by the stress of caregiving for her medically challenged brother. She has previously taken Xanax specifically for anxiety-related to flying but d iscontinued its use due to concerns about side effects, including potential dementia. Regarding hypercholesterolemia, past blood work revealed elevated cholesterol levels, which she attributes in part to inconsistent intake of her cholesterol- lowering medication, rosuvastatin. Her last cholesterol readings indicated a total cholesterol of 196 mg/dL and LDL cholesterol of 115 mg/dL. The patient pr efers to remain on a 5 mg dose of rosuvastatin rather than increasing to 20 mg at this time. She reports dietary efforts to reduce processed and high-salt foods. For hypertension, the patient stopped hydrochlorothiazide and monitors her blood pressure, which has occasionally been as high as 140/80 mmHg. She currently maintains pressure control with dietary modifications without antihypertensive m edications. The patient also notes experiencing relief from gastroesophageal reflux disease symptoms with omeprazole and maintains control of her COPD symptoms with an albuterol inhaler and Wixela inhaler, using the latter once daily. Recently, the patient reported acute neck pain following an incident approximately two weeks ago, which she attributes to a possible muscle strain. She has been managing the pain with heat application and [id number] analgesics. 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 - Monitors blood pressure and aims to im prove diet COUNTS INCLUDE [facility] BEDS AT [facility] Medical History (Updated 12/29/24 @ 10:44 by Juan Luis Nava MD) Hearing disorder Asthma GERD without esophagitis Family History (Updated 08/26/24 @ 08:56 by Iesha Vu MA) Mother Ovarian cancer Father Liver failure AA (alcohol abuse) Social History Housing: House Alcohol intake: current Alcohol intake frequency: holidays/special occasions only Patient Tobacco Use Status: Never used Tobacco e-Cigarette/Vaping Use: Never Used service: No Current occupational status: retired Cognitive needs: No Hearing needs: Yes (b/l hearing aids) Vision needs: Yes (rx glasses) Questionnaire Thrive Questionnaire Date Thrive assessed: 08/26/24 AUDIT C Alcohol Use Questionnaire (AUDIT-C) 1. How often do you have a drink containing alcohol?: Never 3. How often do you have six or more drinks on one occasion?: Never Total Score: 0 KRISTAN-7 AMB Questionnaire KRISTAN-7 Date KRISTAN - 7 assessed: 08/26/24 Source: Developed by Drs. Ishmael Fernández, Sofia Le, Vin Howard and colleagues, with an educational jessika from [employer]. Review of Systems Const Details: - Neurological: Denies headaches, dizziness; Reports occasional anxiety - Cardiovascular: Reports occasional elevated blood pressures - Respiratory: Denies nocturnal cough or waking cough - Musculoskeletal: Reports neck strain, denies numbness or tingling - Mental Health: Reports past anxiety with current occasional imbalance - Sensory: Reports hearing loss, uses bilateral hearing aids All systems reviewed & are unremarkable except as reviewed in HPI and above Physical exam (Primary Care) Vital Signs: Last Vital Signs Temp 97.8 F 12/29/24 10:17 Pulse 75 12/29/24 10:17 Resp 18 12/29/24 10:17 BP 138/84 12/29/24 10:17 Pulse Ox 96 12/29/24 10:17 Oxygen Delivery Method Room Air 12/29/24 10:17 BMI result Body Mass Index 33.6 Tobacco/Smoking Status: Tobacco use Status Tobacco use date assessed 08/26/24 12/29/24 10:10 Patient Tobacco Use Status Never used Tobacco 12/29/24 10:10 e-Cigarette/Vaping Use Never Used 12/29/24 10:17 Thrive Assessment: Date of Thrive Assessment Date Thrive assessed 08/26/24 12/29/24 10:10 Const Other: General: +Alert and oriented, Well nourished, No acute distress. Eye: Pupils are equal, round and reactive to light, Intact accommodation, Extraocular movements are intact, Normal conjunctiva, Vision unchanged. HENT: Normocephalic, Atraumatic, Tympanic membranes are clear, Bilateral hearing aids, Oral mucosa is moist, No pharyngeal erythema, Ear canals patent. Respiratory: Lungs CTA bilaterally, No wheeze, Respirations are non-labored. Cardiovascular: Regular rate, Regular rhythm, S1 auscultated, S2 auscultated, No murmur, Good pulses equal in all extremities, Normal peripheral perfusion, No edema. Gastrointestinal: Soft, Non-tender, Non-distended, Normal bowel sounds, No organomegaly. Musculoskeletal: Normal range of motion, Normal strength, No tenderness, No swelling, No deformity, Normal gait. Integumentary: Warm, Dry, [place], Intact. Neurologic: Alert, Oriented, Normal sensory, Normal motor function, No focal defects, Cranial Nerves II-XII are grossly intact, Normal deep tendon reflexes. Psychiatric: Cooperative, Appropriate mood & affect, Normal judgment, Reports anxiety, Previously on fluoxetine, considering Busbar. Coding Level of Care Code Est Pt Level 4 (51305) Complex EM visit Add On G2211 Diagnoses Primary hypertension I10 Hypertension type: primary hypertension Hyperlipidemia, unspecified hyperlipidemia type E78.5 Hyperlipidemia type: unspecified Anxiety, generalized F41.1 GERD without esophagitis K21.9 Intermittent asthma without complication, unspecified asthma severity J45.20 Asthma complication type: uncomplicated Asthma persistence: intermittent Asthma severity: unspecified severity Hearing problem of both ears H91.93 Laterality: bilateral Assessment & Plan Assessment & Plan (1) Hypertension: Comment: - Monitor blood pressure readings at home. - Previously on HCTZ but discontinued and has pressures well controlled (below 130's at home) - Discussed dietary sodium reduction as a non-pharmacological approach. Code(s): I10 - Essential (primary) hypertension Category: Medical Qualifiers: Hypertension type: primary hypertension Qualified Code(s): I10 - Essential (primary) hypertension (2) Hyperlipidemia: Comment: - Patient will remain on rosuvastatin 5 mg (Only recently started taking it daily, plan was to increase to 20mg daily but on patients insistence will continue 5) - Discussed dietary modifications to aid cholesterol control. - Will repeat blood work at next visit and change dose if required. Code(s): E78.5 - Hyperlipidemia, unspecified Category: Medical Qualifiers: Hyperlipidemia type: unspecified Qualified Code(s): E78.5 - Hyperlipidemia, unspecified (3) Anxiety, generalized: Comment: - Discussed switch from fluoxetine due to adverse effects. - Introduced Buspirone as a medication option, 5 mg three times daily. - Discussed monitoring effects and re-evaluation in three months. Code(s): F41.1 - Generalized anxiety disorder Category: Medical (4) GERD without esophagitis: Comment: - Continue omeprazole. Code(s): K21.9 - Gastro-esophageal reflux disease without esophagitis Category: Medical (5) Asthma: Comment: - Advise use of the albuterol inhaler as needed and Wixela once daily. Code(s): J45.909 - Unspecified asthma, uncomplicated Category: Medical Qualifiers: Asthma complication type: uncomplicated Asthma persistence: intermittent Asthma severity: unspecified severity Qualified Code(s): J45.20 - Mild intermittent asthma, uncomplicated (6) Hearing disorder: Comment: - Patient requires a hearing test. - Referral made for audiological evaluation. Code(s): H91.90 - Unspecified hearing loss, unspecified ear Category: Medical Qualifiers: Laterality: bilateral Qualified Code(s): H91.93 - Unspecified hearing loss, bilateral Plan: Health maintenance: - Recommended hearing test scheduled. - Cholesterol and blood pressure monitoring and management plan discussed. - Lifestyle and dietary modifications reviewed. Patient was informed and verbally consented to the use of an ambient scribe for clinic note documentation during this visit. Plan I discussed with the patient the need for a hearing evaluation, and the referral was made. We also addressed her anxiety disorder history, including a change from fluoxetine to buspirone due to undesirable side effects. I communicated the importance of monitoring cholesterol and blood pressure, emphasizing diet's role in managing these conditions. The patient was instructed on the necessity of keeping track of her blood pressure readings at home to prevent further complications. We also reviewed current treatments and management of her Asthma and GERD. For the acute neck muscle strain, the conversation included using heat and gentle exercises, ensuring the absence of any pinched nerve signs. Instructions were provided for follow-up assessments. Orders: Referrals Audiology Referral H91.90 - Unspecified hearing loss, unspecified ear Medications: New buspirone 5 mg PO TID 270 tabs 0RF 90 days Patient Instructions: - Schedule and attend a hearing test. - Continue rosuvastatin and omeprazole as prescribed. - Start buspirone 5 mg three times a day. - Monitor your blood pressure regularly. - Follow dietary changes to better manage cholesterol and blood pressure. - Continue conservative care for your neck strain and apply heat as needed.
[2024-12-29 10:17] VITALS: BP 138/84; PULSE 75; RESP 18; TEMP 36.6; O2SAT 96; BMI 33.6
--- OUTSIDE RECORDS SUMMARY | 2024-12-29 12:20 | XMS_ITS | Clinical Summary ---
Author Organization [facility] Address [address] [place] [address] Phone Care Team Providers Care Repairer [employer] Furn[employer] Name Role Phone Meliton Kline MD Primary Care Provider Allergies No known active allergies Medications albuterol 90 mcg/actuation inhaler INHALE 2 PUFFS EVERY 4 HOURS DIRECTED Inhalation for 16 Active ciclopirox (LOPROX) 0.77 % gel APPLY 1 APPLICATION TWICE A DAY EXTERNALLY FOR 30 for 30 Active hydroCHLOROthia zide (HYDRODIURIL) 12.5 MG tablet Take 1 tablet by mouth every morning. 3 Active omeprazole (PRILOSEC) 40 MG capsule TAKE ONE CAPSULE BY MOUTH EVERY DAY Oral for 90 Active WIXELA INHUB 100-50 mcg/dose DISKUS take 1 puff by mouth twice a day 4 Active Social History Tobacco Use Types Packs/Day Years Used Date Smoking Tobacco: Never Assessed Education Answer Date Recorded Are you interested in more education? Not on holden e 10/26/2022 Are you concerned about learning? Not on file 10/26/2022 No 10/26/2022 No 10/26/2022 Digital Access Answer Date Recorded No 10/26/2022 No 10/26/2022 Reliable internet access at home? Not on file 10/26/2022 Device with a working camera? Not on file Comments Unknown Sex and Gender Information Value Date Recorded Sex Assigned at Not on file Legal Sex Female 12:54 PM EDT Gender Identity Not on file Sexual Orientation Not on file Last Filed Vital Signs Vital Sign Reading Time Taken Comments Blood Pressure 133/83 06/27/2023 11:42 AM EDT Pulse 100 06/27/2023 11:42 AM EDT Temperature 36.4 C (97.5 F) 06/27/2023 11:42 AM EDT Respiratory Rate 12 06/27/2023 11:42 AM EDT Oxygen Saturation 97% 06/27/2023 11:42 AM EDT Inhaled Oxygen Concentration - - Weight 100.7 kg (222 lb) 10/26/2022 2:29 PM EDT Height 180.3 cm (5' 11 ) 10/26/2022 2:29 PM EDT Body Mass Index 30.96 10/26/2022 2:29 PM EDT Plan of Treatment Health Maintenance Due Date Last Done Comments Adult Td,Tdap Booster 1955 LIPID PANEL 1955 POTASSIUM LEVEL 1955 DEPRESSION SCREENING 1967 SMOKING Hx and SMOKELESS TOBACCO SCREENING 11/23/1968 HEPATITIS C SCREENING 11/23/1973 SCREENING FOR DIABETES 11/23/1990 MAMMOGRAM 1995 COLOGUARD 11/23/2000 COLONOSCOPY 11/23/2000 COLORECTAL CANCER SCREENING 11/23/2000 FIT TEST 11/23/2000 FOBT 11/23/2000 SIGMOIDOSCOPY 11/23/2000 VIRTUAL COLONOSCOPY 11/23/2000 PNEUMOCOCCAL VACCINES (50+ years) (1 of 1 - PCV) 11/23/2005 ZOSTER VACCINES (1 of 2) 11/23/2005 OSTEOPOROSIS SCREENING INITIAL (ONE-TIME) 11/23/2020 INFLUENZA VACCINE (#1) 2024 COVID-19 VACCINE ( season) 2024 01/10/2022, 02/18/2021, 05/05/2020, Additional history exists RSV VACCINE (1 - 1-dose 75+ series) 11/23/2030 HEPATITIS A VACCINES Aged Out No long er eligible based on patient's age to complete this topic HIB VACCINES Aged Out No longer eligi ble based on patient's age to complete this topic MENINGOCOCCAL VACCINES (ACWY) Aged Out No longer eligible based on patient's age to complete this topic MENINGOCOCCAL VACCINES (B) Aged Out N o longer eligible based on patient's age to complete this topic Medical Devices Not on file Insurance MEDICARE PART A & B [facility] MEDICARE PPO BLUE REPLACEMENT MEDICARE PART A & B [facility] MEDICARE PPO BLUE REPLACEMENT [place]UE REPLACEMENT [facility] MEDICARE PPO BLUE REPLACEMENT MEDICARE PART A & B [facility] MEDICARE PPO BLUE REPLACEMENT [place] MED[place] BLUE REPLACEMENT Care Teams Repairer [employer] Furn[employer] Relationship Specialty Start Date End Date Meliton Kilne MD [address] [place] [address] [place] [address] PCP - General Internal Medicine 10/26/22 Additional Source Comments The information contained in this document represents components of the legal health record. It is not the complete legal health record.[facility]
--- OUTSIDE RECORDS SUMMARY | 2024-12-29 12:20 | XMS_ITS | Patient Health Record ---
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 Name Role Phone JakobElina Primary Care Provider Sukumar GirardRox Unavailable [phone] Allergies No Known Allergies Reason For Referral No Information Medications Medication SIG (Take, Route, Frequency, Duration) Notes Start Date End Date Status Formula 7 The Solution 1 % 1 application Externally Once a day Active Wixela Inhub 100-50 MCG/ACT 1 puff Inhalation Twice a day Active Formula 7 The Solution Active Vitamin D 3 times a week Active Night Splint AFO - L1930 1 wear when at rest; Duration: 30 days Active Crestor 5 MG 1 tablet Orally Once a day; Duration: 30 day(s) Active Albuterol Sulfate HFA 108 (90 Base) MCG/ACT INHALE 2 PUFFS EVERY 4 HOURS DIRECTED Inhalation; Duration: 16 Active Claritin 10 MG 1 tablet Orally Once a day; Duration: 30 day(s) Active Omeprazole 40 MG TAKE ONE CAPSULE BY MOUTH EVERY DAY Oral; Duration: 90 Active Ammonium Lactate 12 % 1 application Externally to affected areas of dry skin to feet except for between the toes Twice a day; Duration: 30 days Active hydroCHLOROthiazide 12.5 MG 1 capsule in the morning Orally Once a day; Duration: 30 day(s) Not-Taking Flovent HFA 110 MCG/ACT INHALE 1 PUFF BY MOUTH TWICE A DAY (RINSE MOUTH AFTER USING) Inhalation; Duration: 90 Not-Taking Ciclopirox 0.77 % APPLY 1 APPLICATION TWICE A DAY EXTERNALLY FOR 30; Duration: 30 Not-Taking Immunizations Vaccine Route Administration Date Status Comme [...] Are you an other tobacco user? No AUDIT-C (Standard) Question Answer Notes Did you have a drink containing alcohol in the p ast year? No Points 0 Interpretation Negative Problems Problem Type SNOMED Code ICD Code Onset Dates Problem Status W/U Status Risk Notes Problem Tinea unguium (978903806) Tinea unguium (B35.1) Active confirmed Problem Interstitial myositis (63777454) Interstitial myositis of left foot (M60.172) Active confirmed Vital Signs Blood pressure diastolic 80 mm Hg 12/12/2024 Height 0im10sk in 12/12/2024 Blood pressure systolic 129 mm Hg 12/12/2024 Weight 235 lbs 12/12/2024 BMI 32.77 kg/m2 12/12/2024 Procedures Procedure Date Ordered Date Performed Result Body Sit e 84815-NQYABFW NAIL, 6 OR MORE 02/08/2024 N/A 50014-HQXVYOE NAIL, 6 OR MORE 05/16/2024 N/A 23053-YBMANKQ NAIL, 6 OR MORE 08/25/2024 N/A 75798-MKAAFLX NAIL, 6 OR MORE 12/12/2024 N/A 72407-Tcfvoyal Plate 12/12/2024 N/A Encounters Encounter Location Date Provider Diagnosis [facility] [address] [place] [address] 02/08/2024 Rox Black Tinea unguium B35.1 ; Metatarsalgia of left foot M77.42 ; Pain in right toe(s) M79.674 ; Pain in left toe(s) M79.675 ; Pain in right foot M79.671 ; Flexion contracture M24.50 ; Hallux valgus, left M20.12 and Pain in left foot M79.[address] [address] 05/16/2024 Rox Black Tinea unguium B35.1 ; Xerosis of skin L85.3 ; Pain in right toe(s) M79.674 and Pain in left toe(s) M79.[address] [address] 08/25/2024 Rox Black Tinea unguium B35.1 ; Xerosis of skin L85.3 ; Pain in right toe(s) M79.674 and Pain in left toe(s) M79.[address] [address] 12/12/2024 Rox Black Tinea unguium B35.1 ; Pain in right toe(s) M79.674 ; Pain in left toe(s) M79.675 ; Achilles tendinitis of left lower extremity M76.62 ; Pain of left heel M79.672 ; Ingrown nail L60.0 ; Interstitial myositis of left foot M60.172 ; Short Achilles tendon of left lower extremity M67.02 and Calcaneal bursitis, left M77.[address] [address] 02/08/2024 Rox Black [address] [address] 04/18/2024 Rox Black [facility] [address] 05/16/2024 Rox Black [facility] [address] 08/25/2024 Rox Black [facility] [address] 12/12/2024 Rox Black Assessments Encounter Date Diagnosis (ICD Code) Assessment Notes Treatment Notes Treatment Clinical Notes Section Notes 02/08/2024 Tinea unguium (ICD-10 - B35.1) 02/08/2024 Metatarsalgia of left foot (ICD-10 - M77.42) Response to treatment - Improvement 05/16/2024 Xerosis of skin (ICD-10 - L85.3) 08/25/2024 Tinea unguium (ICD-10 - B35.1) 08/25/2024 Xerosis of skin (ICD-10 - L85.3) 12/12/2024 Tinea unguium (ICD-10 - B35.1) 05/16/2024 Tinea unguium (ICD-10 - B35.1) 05/16/2024 Pain in right toe(s) (ICD-10 - M79.674) 12/12/2024 Pain in right toe(s) (ICD-10 - M79.674) 08/25/2024 Pain in right toe(s) (ICD-10 - M79.674) 02/08/2024 Pain in right toe(s) (ICD-10 - M79.674) 02/08/2024 Pain in left toe(s) (ICD-10 - M79.675) 08/25/2024 Pain in left toe(s) (ICD-10 - M79.675) 12/12/2024 Pain in left toe(s) (ICD-10 - M79.675) 05/16/2024 Pain in left toe(s) (ICD-10 - M79.675) 12/12/2024 Pain of left heel (ICD-10 - M79.672) 12/12/2024 Achilles tendinitis of left lower extremity (ICD-10 - M76.62) Patient Educated with: HEEL CORD STRETCHES.pdf (HEEL CORD STRETCHES.pdf ) Patient Educated with: RICE THERAPY.pdf (RICE THERAPY.pdf) 02/08/2024 Pain in right foot (ICD-10 - M79.671) 02/08/2024 Flexion contracture (ICD-10 - M24.50) 12/12/2024 Ingrown nail (ICD-10 - L60.0) 12/12/2024 Interstitial myositis of left foot (ICD-10 - M60.172) 02/08/2024 Hallux valgus, left (ICD-10 - M20.12) 02/08/2024 Pain in left foot (ICD-10 - M79.672) 12/12/2024 Short Achilles tendon of left lower extremity (ICD-10 - M67.02) 12/12/2024 Calcaneal bursitis, left (ICD-10 - M77.52) Plan Of Treatment Pending Test Test Name Order Date 27227-[id number] NAIL, 6 OR MORE 03/05/2020 86270-HVUUXBT NAIL, 6 OR MORE 09/06/2020 72127-ZTKGQDO NAIL, 6 OR MORE 12/06/2020 73284-REQNMVO NAIL, 6 OR MORE 03/25/2021 54138-JNSKBQX NAIL, 6 OR MORE 07/08/2021 66854-TGRSRID NAIL, 6 OR MORE 11/21/2021 41646-RLXTSGF NAIL, 6 OR MORE 02/24/2022 02252-[id number] NAIL, 6 OR MORE 09/04/2022 74185-UPSDAJF NAIL, 6 OR MORE 02/19/2023 08266-ORQMCMS NAIL, 6 OR MORE 07/13/2023 30991-FBFIVPI NAIL, 6 OR MORE 10/29/2023 88617-MTEPNOJ NAIL, 6 OR MORE 02/08/2024 18079-VFMHXVN NAIL, 6 OR MORE 05/16/2024 04062-JTUXQIM NAIL, 6 OR MORE 08/25/2024 60786-VLWYHRN NAIL, 6 OR MORE 12/12/2024 62040-Epwhfcum Plate 12/12/2024 Next Appt Details Provider Name:Rox Girard , 03/20/2025 01:45:00 PM, [address] [place], [address], Insurance Providers Payer Name Payer Address Payer Phone Subscriber Number Group Number Insured Name Patient Relationship to Insured Coverage Start Date Coverage End Date [facility] 65 Medicare Preferred [address] [place] [address] [phone] [id number] Brenda Munguia Self - patient is the insured Medical (General) History Medical History History ICD Code asthma High blood pressure Measles Chicken pox toenail fungus Other hammer toe(s) (acquired), right fo ot M20.41 Other hammer toe(s) (acquired), left matheus t M20.42 Hallux valgus (acquired), right foot M20 .11 Flexion contracture M24.50 Hallux valgus, left M20.12 Xerosis of skin L85.3 Surgical History Surgery Date(Month/Year) section 09/1985 section 08/1988 hysterectomy 05/1992
== END 2024-12-29 10:34 | disposition home or self-care (01) ==
LOC: HO.HMCHD 10:09
PROVIDERS: PCP Internal Medicine; Visit Provider Student in an Organized Health Care Education/Training Program
DX: I10 Essential (primary) hypertension (principal); E78.5 Hyperlipidemia, unspecified; F41.1 Generalized anxiety disorder; K21.9 Gastro-esophageal reflux disease without esophagitis; J45.20 Mild intermittent asthma, uncomplicated; H91.93 Unspecified hearing loss, bilateral

== ENCOUNTER → 2024-12-29 10:08 | Outpatient (BNVA) | payer MEDICARE, SELFPAY | PROVIDERS: PCP Internal Medicine; Visit Provider Student in an Organized Health Care Education/Training Program | DX: I10 Essential (primary) hypertension (principal); E78.5 Hyperlipidemia, unspecified; F41.1 Generalized anxiety disorder; K21.9 Gastro-esophageal reflux disease without esophagitis; J45.20 Mild intermittent asthma, uncomplicated; H91.93 Unspecified hearing loss, bilateral; Z79.899 Other long term (current) drug therapy | CPT/HCPCS: 99212 ==